=== PATIENT | female | born 1980 | race Caucasian/White ===

== ENCOUNTER 2020-01-23 08:46 | Outpatient (CLI) | payer OTHER, SELFPAY ==
--- NOTE | 2020-01-29 10:07 | WPDPFTINT ---
PFT Interpretation PFT Interpretation: DOS: 01/23/2020 REQUESTING: Phylicia Brunson NP REASON FOR TESTING: Asthma PULMONARY FUNCTION TESTS Results are reliable and reproducible. Spirometry: FEV1 is 109%, FVC 99%, FEV1% 87%, all are normal. IPO40-19% is 131%, normal. No change with bronchodilator. Lung volumes: TLC 81%, low end of normal. ERV 53%, decreased likely due to elevated BMI. No air trapping. No increase in airway resistance. Diffusion: DLCO 72%, mildly decreased. Flow volume loop: Normal. IMPRESSION: Normal spirometry, lung volumes with mild diffusion impairment. Isolated decrease in diffusion can be seen in anemia, smoking with carboxyhemoglobin, early ILD, collagen vascular disease with pulmonary vascular involvement, and chronic pulmonary emboli. Clinical correlation is recommended. Bethany Valdez MD
== END 2020-01-23 08:47 | disposition home or self-care (01) ==
LOC: ANHPFT 08:48
PROVIDERS: PCP Nurse Practitioner Adult Health; Visit Provider Nurse Practitioner
DX: J45.909 Unspecified asthma, uncomplicated (principal)
CPT/HCPCS: 94060; 94726; 94729

== ENCOUNTER 2021-09-23 15:36 | Outpatient (CLI) | payer OTHER, SELFPAY ==
--- NOTE | ~2021-09-23 | MR_ITS ---
EXAMINATION: MR pelvis wo con DATE: 09/23/2021 16:58 INDICATION: Lesion of joint capsule of pelvic region. TECHNIQUE: Magnetic resonance imaging (MRI) of the pelvis was performed without intravenous contrast. Sequences included axial, coronal, and sagittal T1-weighted FSE and T2-weighted FS FSE. COMPARISON: None. FINDINGS: Bone alignment is normal. No fracture. L5-S1, there is moderately decreased disc height with right castaneda barticular zone extrusion with mass effect on right S1 nerve root in right lateral recess. There is a benign bone island in right ilium. There is mild osteoarthritis of the hips. No hip joint effusion. The hamstring tendon origins and iliopsoas tendons are normal. The gluteus minimus and gluteus medius tendons are normal. The muscle bellies are unremarkable. IMPRESSION: 1. Mild osteoarthritis of the hips. 2. Extrusion at L5-S1 with mass effect on right S1 nerve root. Reviewed, dictated and finalized at location [facility].
== END 2021-09-23 15:37 | disposition home or self-care (01) ==
PROVIDERS: PCP Nurse Practitioner Adult Health; Visit Provider Nurse Practitioner Adult Health
DX: M16.0 Bilateral primary osteoarthritis of hip (principal); M51.27 Other intervertebral disc displacement, lumbosacral region
CPT/HCPCS: 72195

== ENCOUNTER 2021-10-19 10:46 | Emergency (ER) | payer OTHER, SELFPAY ==
[2021-10-19 11:09] VITALS: BP 161/73; PULSE 106; RESP 22; TEMP 36.8; O2SAT 99
[2021-10-19] MEDS: KETOROLAC 30 MG/ML VIAL (*BKC) IM (11:36)
[2021-10-19] MEDS: diazePAM INJ (*CRX) 10 MG/2 ML SYRINGE 5 MG IM (11:36)
[2021-10-19] MEDS: LIDOCAINE 5% PATCH 1 PATCH TRANSDERM (12:04)
[2021-10-19 12:05] VITALS: BP 124/74; PULSE 78; RESP 18; O2SAT 99
[2021-10-19 13:25] LABS: Appearance Urine Slightly Cloudy (Clear); Bilirubin Urine Negative (Negative); Blood Urine Negative (Negative); Color Urine Yellow (Yellow); Glucose Urine UA Negative (Negative); Ketones Urine Negative (Negative); Leukocyte Esterase Ur Trace LEU/UL (Negative); Nitrate Urine Negative (Negative); Protein Urine Negative (Negative); Specific Grav Ur 1.015 (1.001-1.035); Urobilinogen Urine 0.2 mg/dL (<2.0)
[2021-10-19 13:27] LABS: Add Urine Microscopic? YES
[2021-10-19 13:32] LABS: Bacteria Urine Trace /hpf; Mucus Urine Rare /lpf; Squamous Epithelial Cell Urine Moderate /hpf (Few)
[2021-10-19 13:49] VITALS: BP 142/88; PULSE 77; RESP 18; O2SAT 98
--- NOTE | 2021-10-19 14:53 | ED.BACK ---
HPI - Back Pain/Injury General Chief Complaint: Back Pain/Injury Stated Complaint: back pain Time Seen by Provider: 10/19/21 11:11 Source: patient Mode of arrival: ambulatory History of Present Illness HPI Narrative: 41-year-old female presents today with complaints of back pain that has gotten increasingly worse. Patient currently has been worked up by her primary with an MRI and instructed that she had a bulging disc. Patient with increased pain over the last few days. States that she has a appointment with pain management during the week but the pain was just not tolerable today. Patient denies bowel incontinence, bladder incontinence saddle paresthesia, or leg weakness. Patient has tried tenacity in, ibuprofen, Tylenol home without relief. Patient was able to walk from triage to room without difficulty per nurse. Related Data Home Medications Medication Instructions Recorded Confirmed albuterol sulfate 10/19/21 albuterol sulfate INHALATION 10/19/21 alprazolam 0.5 mg PO BID PRN 10/19/21 10/19/21 calcipotriene-betamethasone TOPICAL 10/19/21 [Enstilar] gabapentin 300 mg PO TID 10/19/21 10/19/21 hydrochlorothiazide 25 mg PO DAILY 10/19/21 10/19/21 Allergies Allergy/AdvReac Type Severity Reaction Status Date / Time No Known Allergies Allergy Unverified 10/14/21 10:20 Review of Systems Review of Systems: CONSTITUTIONAL: Denies fever, chills, or sweats. EYES: Denies visual changes, redness, or discharge. ENT: Denies rhinorrhea, congestion, sore throat, or otalgia. CARDIOVASCULAR: Denies chest pain, palpitations, or edema. RESPIRATORY: Denies cough or dyspnea. GASTROINTESTINAL: Denies abdominal pain, nausea, vomiting, or diarrhea. GENITOURINARY: Denies dysuria or hematuria. SKIN: Denies rash or itching. MUSCULOSKELETAL: Back pain radiating down the right leg. Denies joint pain, or myalgia. NEUROLOGIC: Denies headache, numbness, dizziness, or weakness. PSYCHIATRIC: Denies anxiety or depression. Exam Narrative: GENERAL: Well-appearing, well-nourished, and in no acute distress. HEAD: Normocephalic, atraumatic. EYES: PERRLA and EOMI. ENT: Nares clear, no rhinorrhea or epistaxis. Mucous membranes moist. Oropharynx without tonsillar hypertrophy exudate or other lesions. Bilateral TMs pearly de santiago nonbulging NECK: Supple. No adenopathy or masses. No carotid bruits or JVD CHEST: Clear to auscultation. No respiratory distress. No wheezes rales or rhonchi HEART: Regular rate and rhythm. No murmur heard. Normal peripheral pulses. ABDOMEN: Soft, nontender, nondistended, normal active bowel sounds. EXTREMITIES: Unable to do straight leg raises due to pain. Normal range of motion. No edema. SKIN: Warm, dry, no rash. NEURO: No focal deficits. Alert and oriented x3. PSYCH: Normal mood and affect. Course Course Emergency Course: After medication patient pain tolerable. Patient has an appointment tomorrow at a pain management center in [place] but does not feel that she can make car ride due to the pain and she has an appointment at pain management either Wednesday or here at [facility]. Patient discharged home with naproxen, Flexeril, and lidocaine patch. Patient instructed to return with new any new or worsening symptoms including urinary incontinence, bowel incontinence, leg weakness or any other concerns. Patient able to ambulate to vehicle without assistance. Vital Signs Vital signs: Vital Signs Temperature 36.8 C 10/19/21 11:09 Pulse Rate 106 H 10/19/21 11:09 Respiratory Rate 22 H 10/19/21 11:09 Blood Pressure 161/73 H 10/19/21 11:09 Pulse Oximetry 99 10/19/21 11:09 Temperature 36.8 C 10/19/21 11:09 Pulse Rate 77 10/19/21 13:49 Respiratory Rate 18 10/19/21 13:49 Blood Pressure 142/88 H 10/19/21 13:49 Pulse Oximetry 98 10/19/21 13:49 MDM - Back Pain/Injury MDM Narrative Medical decision making narrative: HPI as noted. Patient has had a previous MRI and was i
== END 2021-10-19 13:50 | disposition home or self-care (01) ==
PROVIDERS: Emergency Provider Nurse Practitioner Family; PCP Nurse Practitioner Adult Health
DX: M54.17 Radiculopathy, lumbosacral region (principal)
CPT/HCPCS: 81001; 87086; 87088; 96372; 99284; A9270; J1100; J1885; J3360

== ENCOUNTER 2021-10-28 06:36 | Outpatient (CLI) | payer OTHER, SELFPAY ==
--- NOTE | ~2021-10-28 | MR_ITS ---
EXAMINATION: MR lumbar spine wo con DATE: 10/28/2021 07:11 INDICATION: Lumbar radiculopathy. TECHNIQUE: Magnetic resonance imaging (MRI) of the lumbar spine was performed without intravenous con trast. Sequences included sagittal T2-weighted FSE, sagittal T2-weighted FS FSE, sagittal T1-weighted FSE, and axial T2-weighted FSE. COMPARISON: Lumbar spine radiographs 06/10/2012 FINDINGS: There is 2 mm anterolisthesis of L4 on L5 and 3 mm retrolisthesis of L5 on S1. Vertebral taylor dy heights are normal. There is moderately decreased disc height at L5-S1. The distal spinal cord sig nal intensity is normal. The conus medullaris is at T12-L1. The following disc levels are specificall y discussed: L1-L2: The disc does not extend beyond the endplate margin. There is mild right and moderate left fac et joint osteoarthritis. There is no neural foraminal stenosis. There is no central canal stenosis. L2-L3: The disc does not extend beyond the endplate margin. There is mild bilateral facet joint osteo arthritis. There is no neural foraminal stenosis. There is no central canal stenosis. L3-L4: The disc does not extend beyond the endplate margin. There is moderate bilateral facet joint o steoarthritis. There is no neural foraminal stenosis. There is no central canal stenosis. L4-L5: The disc does not extend beyond the endplate margin. There is severe bilateral facet joint ost eoarthritis. There is mild bilateral neural foraminal stenosis. There is no central canal stenosis. L5-S1: There is a right central and subarticular zone extrusion with mass effect on right S1 nerve ro ot in right lateral recess. There is moderate bilateral facet joint osteoarthritis. There is mild sammie ateral neural foraminal stenosis. There is moderate central canal stenosis. There is severe stenosis of right lateral recess. IMPRESSION: 1. Moderate lower lumbar spondylosis. Of note, a large extrusion at L5-S1 exerts mass effect on right S1 nerve root. Reviewed, dictated and finalized at location B. IMPRESSION: 1. Moderate lower lumbar spondylosis. Of note, a large extrusion at L5-S1 exert s mass effect on right S1 nerve root.
== END 2021-10-28 06:37 | disposition home or self-care (01) ==
PROVIDERS: PCP Nurse Practitioner Adult Health; Visit Provider Nurse Practitioner Adult Health
DX: M47.26 Other spondylosis with radiculopathy, lumbar region (principal)
CPT/HCPCS: 72148

== ENCOUNTER 2021-10-28 23:02 | Emergency (ER) | payer OTHER, SELFPAY ==
[2021-10-28 23:50] VITALS: BP 175/109; PULSE 121; RESP 24; TEMP 36.3; O2SAT 100
[2021-10-29] VITALS (17 sets, daily range): BP systolic 148–180; BP diastolic 63–99; PULSE 96–133; RESP 10–39; O2SAT 97–99
[2021-10-29 02:26] LABS: Appearance Urine Clear (Clear); Bilirubin Urine Negative (Negative); Blood Urine 2+ (Negative); Color Urine Yellow (Yellow); Glucose Urine UA Negative (Negative); Ketones Urine Trace mg/dL (Negative); Leukocyte Esterase Ur Trace LEU/UL (Negative); Nitrate Urine Negative (Negative); Protein Urine Negative (Negative); Specific Grav Ur >= 1.030 (1.001-1.035); Urobilinogen Urine 0.2 mg/dL (<2.0); pH Urine 5.5 (5.0-9.0)
[2021-10-29 02:38] LABS: Mucus Urine Rare /lpf; Squamous Epithelial Cell Urine Moderate /hpf (Few)
[2021-10-29 02:39] LABS: Add Urine Microscopic? YES
[2021-10-29] MEDS: diazePAM (*CRX) 5 MG TABLET PO (04:16)
--- NOTE | 2021-10-29 06:41 | ED.BACK ---
HPI - Back Pain/Injury General Chief Complaint: Back Pain/Injury Stated Complaint: pain and numbness to both legs, herniated disk Time Seen by Provider: 10/29/21 03:58 Source: patient and RN notes reviewed Mode of arrival: ambulatory Limitations: no limitations History of Present Illness HPI Narrative: This is a 41 year old female who presents for evaluation of back pain and spasm. Patient has been dealing with sciatica and back pain for 3 weeks. She reports she has been having pain that radiates down her right leg. She also reports right foot numbness that has been present for 3 weeks. Patient was taking a muscle relaxer with gabapentin but her doctor recently forgot to prescribes her muscle relaxer again. She states she has been unable to sleep for 2 days due to right thigh spasms. She also reports tonight feeling like she had tingling when she was urinating. She felt increased urinary urgency. She also reports feeling some numbness in her vagina. She denies nausea, vomiting, chest pain, sob, fever or chills . She also denies leg weakness. She is able to walk. Related Data Home Medications Medication Instructions Recorded Confirmed albuterol sulfate 10/19/21 albuterol sulfate INHALATION 10/19/21 alprazolam 0.5 mg PO BID PRN 10/19/21 10/19/21 calcipotriene-betamethasone TOPICAL 10/19/21 [Enstilar] gabapentin 300 mg PO TID 10/19/21 10/19/21 hydrochlorothiazide 25 mg PO DAILY 10/19/21 10/19/21 Allergies Allergy/AdvReac Type Severity Reaction Status Date / Time No Known Allergies Allergy Unverified 10/14/21 10:20 Review of Systems Review of Systems: All systems reviewed & are unremarkable except as noted in HPI and below PMFSH Past Medical History Medical History (Updated 10/29/21 @ 06:49 by More Atkinson MD) Cholecystitis Hypertension Sciatica Social History Social History (Updated 10/29/21 @ 06:45 by More Atkinson MD) Smoking status: Never smoker Exam Narrative: GENERAL: Well-appearing, well-nourished, and in no acute distress. HEAD: Normocephalic, atraumatic NECK: Supple, without lymphadenopathy or mass RESPIRATORY: No respiratory distress, Airway patent, Respirations non-labored, EXTREMITIES: normal strength with full range of motion. SKIN: Warm, dry, normal color without rash NEURO: Alert and oriented x3. CN 2-12 grossly intact. No focal deficits. PSYCH: Normal mood and affect. Const: General: no acute distress and alert Nutritional Appearance: obese Orientation/consciousness: patient oriented x3 Neuro: Motor exam (neuro): 5/5 motor strength present throughout, Pronator motor function not present and No tremor noted Sensory Exam: Abnormal lower extremity sensory exam (right heel numbness) and Perineum abnormal exam normal Extrem: Other: bilateral pedal edema Psych: Mental Status: mental status grossly normal Affect: normal affect Course Reevaluation(s) Reevaluation #1: PAtient received valium. She states she feels better She denies saddle anesthesia now. She normal rectal exam. She has normal perineum exam. I discussed with patient that I had call out to spine regarding her symptoms and MRI. Tito does not want to wait since her symptoms have improved. Date: 10/29/21 Time: 06:47 Vital Signs Vital signs: Vital Signs Temperature 97.3 F L 10/28/21 23:50 Pulse Rate 121 H 10/28/21 23:50 Respiratory Rate 24 H 10/28/21 23:50 Blood Pressure 175/109 H 10/28/21 23:50 Pulse Oximetry 100 10/28/21 23:50 Temperature 97.3 F L 10/28/21 23:50 Pulse Rate 114 H 10/29/21 07:14 Respiratory Rate 24 H 10/29/21 07:14 Blood Pressure 180/99 H 10/29/21 07:14 Pulse Oximetry 97 10/29/21 07:00 MDM - Back Pain/Injury Lab Data Labs: Lab Results 10/29/21 Range/Units 01:51 Urine Color Yellow (Yellow) Urine Appearance Clear (Clear) Urine pH 5.5 (5.0-9.0) Ur Specific [place] >= 1.030 (1.001-1.035) Urine Protein Negative
== END 2021-10-29 07:19 | disposition home or self-care (01) ==
PROVIDERS: Emergency Provider General Practice; PCP Nurse Practitioner Adult Health
DX: M54.16 Radiculopathy, lumbar region (principal); I10 Essential (primary) hypertension
CPT/HCPCS: 72148; 81001; 81025; 87086; 87088; 99283; A9270

== ENCOUNTER 2021-11-08 12:14 | Inpatient (IN) | payer OTHER, SELFPAY ==
[2021-11-08] VITALS (16 sets, daily range): BP systolic 115–147; BP diastolic 79–114; PULSE 120–160; RESP 16–27; TEMP 35.9–36.8; O2SAT 92–99; BMI 66.1
--- NOTE | ~2021-11-08 | CT_ITS ---
EXAMINATION: CTA chest PE protocol DATE: 11/08/2021 14:29 INDICATION: Shortness of breath, tachycardia, elevated d-dimer. Recent surgery. TECHNIQUE: Computed tomography angiography (CTA) of the chest was performed with 100 mL Omnipaque-350 intravenous contrast timed to evaluate the pulmonary arteries. Coronal maximum intensity projection 3D-reconstructions were created by the technologist. Automated exposure control and iterative reconst ruction technique were employed. Exam dose: 1078.44 mGy-cm total exam DLP. COMPARISON: 05/31/[address] pulmonary scan FINDINGS: There is diagnostic contrast enhancement the pulmonary arteries. There is extensive bilater al pulmonary emboli including bilateral saddle emboli, with extending into the bilateral upper and lo wer lobes and middle lobe. Right ventricle appears larger than left lateral with some leftward bowing of the interventricular se ptum suggesting right heart strain. No thoracic aortic aneurysm or dissection. No hilar or mediastinal mass lesion or lymphadenopathy is detected. Normal heart size. No pericardial or pleural effusion. No pulmonary infiltrate or consolidation or pulmonary mass lesion. Normal morphology of the adrenal glands. Status post cholecystectomy. Hepatic steatosis. IMPRESSION: Extensive bilateral pulmonary emboli with evidence of right heart strain Dr. Duque notified emergency room physician Dr. Paez of the findings on 11/08/2021 at 1434 hours by telephone. Reviewed, dictated and finalized at [facility]. Reviewed, dictated and finalized at location A. IMPRESSION: Extensive bilateral pulmonary emboli with evidence of right heart strain Dr. Duque notified emergency room physician Dr. Paez of the findings on 11/08 at 1434 hours by telephone.
--- NOTE | 2021-11-08 12:32 | ED.GENADULT ---
HPI - General Adult General Chief complaint: Shortness of Breath/Dyspnea Stated complaint: shortness of breath Time Seen by Provider: 11/08/21 12:24 History of Present Illness HPI narrative: 41-year-old female with history of asthma presenting to the emergency department for evaluation of worsening chest tightness and shortness of breath. Patient did have a microdiscectomy L5-S1 done on Wednesday by Dr. Henry at [facility]. Patient states that she has had some worsening shortness of breath. Patient states she had shortness of breath that started yesterday and that it was transient. Patient states that the shortness of breath worsened today and has been persistent. Patient states she does have some chest tightness. Patient does have history of asthma but denies any associated wheezing. Patient is on oral control. Patient denies any prior history of PE or DVT. Patient does have some right lower extremity swelling and numbness. Patient states the numbness has been persistent since before the surgery. Patient states that the swelling has been unchanged since the surgery. Patient is vaccinated against COVID. Patient denies any recent COVID symptoms including fever. Related Data Home Medications Medication Instructions Recorded Confirmed albuterol sulfate 10/19/21 albuterol sulfate 90 mcg/actuation inhalation 10/19/21 aerosol inhaler alprazolam 0.5 mg tablet 0.5 mg PO BID PRN Anxiety 10/19/21 10/19/21 calcipotriene 0.005 topical 10/19/21 %-betamethasone 0.064 % topical foam (Enstilar) gabapentin 300 mg capsule 300 mg PO TID 10/19/21 10/19/21 hydrochlorothiazide 25 mg tablet 25 mg PO DAILY 10/19/21 10/19/21 Allergies Allergy/AdvReac Type Severity Reaction Status Date / Time No Known Allergies Allergy Unverified 10/14/21 10:20 Review of Systems Review of Systems: CONSTITUTIONAL: Denies fever, chills, or sweats. EYES: Denies visual changes, redness, or discharge. ENT: Denies rhinorrhea, congestion, sore throat, or otalgia. CARDIOVASCULAR: Rapid heart rate RESPIRATORY: Hypoxia 88% noted at home with associated shortness of breath with exertion GASTROINTESTINAL: Denies abdominal pain, nausea, vomiting, or diarrhea. GENITOURINARY: Denies dysuria or hematuria. SKIN: Denies rash or itching. MUSCULOSKELETAL: Denies back pain, joint pain, or myalgia. NEUROLOGIC: No change in her numbness or weakness since surgery. No acute worsening of her lower back pain. PSYCHIATRIC: Patient does have history of anxiety. [facility] Past Medical History Medical History (Updated 11/08/21 @ 17:31 by Harry Paez MD) Cholecystitis Hypertension Sciatica Social History Social History (Updated 10/29/21 @ 06:45 by More Atkinson MD) Smoking status: Never smoker Exam Narrative: APPEARANCE: Anxious appearing HEAD: normocephalic, atraumatic. THROAT: Pharynx clear, no exudate. NECK: Supple. No adenopathy, no masses. RESPIRATORY: Airway patent, respirations nonlabored. Clear to auscultation bilaterally, no rales, rhonchi, wheezing. CARDIOVASCULAR: Tachycardic, normal rhythm without murmurs rubs or gallops. ABDOMINAL: Soft, nontender, nondistended, normal bowel sounds MUSCULOSKELETAL: Moves all extremities. Strength/ROM intact. Right lower extremity edema. NEURO: Alert. Cranial nerves II through XII intact. Grossly intact SKIN: Warm, dry. Normal Color Course Course Emergency Course: Patient's EKG showed sinus tachycardia with the ST elevation. Patient D-dimer was elevated. CTA did show evidence of pulmonary embolism bilaterally. Patient is tachycardic into the 130s after rehydration. Patient is anxious and she was also treated with medications for anxiety. After treatment of her anxiety patient does feel improved. Case was discussed with the hospitalist and patient will be admitted to the IMU. Heparin bolus and infusion were started while the patient was in the ED. Patient and family were updated on the diagn
--- NOTE | 2021-11-08 12:36 | ECG_ITS ---
Measurements Intervals [place] Rate: 129 P: 9 VT: 148 QRS: 29 QRSD: 90 T: 5 QT: 334 QTc: 490 Interpretive Statements SINUS TACHYCARDIA DELAYED PRECORDIAL R/S TRANSITION MINIMAL Q WAVES- INFERIOR LEADS BORDERLINE ST-T WAVE ABNORMALITY- ANTEROLAT/INF LEADS ABNORMAL ECG Electronically Signed On 11-08-2021 16:00:10 CDT by Bill Mcfarland D.O.
[2021-11-08 12:43] LABS: Basophils Percent Auto 0.3 % (0.2-1.2); Eosinophils Absolute Auto 0.4 K/mm3 (0-0.3); Eosinophils Percent Auto 2.9 % (0-4.4); Hematocrit 43.3 % (37.0-47.0); Hemoglobin 13.6 g/dL (12.0-15.0); Immature Granulocyte Absolute 0.05 K/mm3 (0.00-0.031); Immature Granulocyte Percent A 0.4 % (0-0.5); Lymphocytes Absolute Auto 3.87 K/mm3 (0.9-3.2); Lymphocytes Percent Auto 29.1 % (18.3-44.2); Mean Corpuscular HGB Conc 31.4 g/dl (32-36); Mean Corpuscular Hemoglobin 27.5 pg (26-34); Mean Corpuscular Volume 87.5 fl (80-100); Mean Platelet Volume 10.5 fl (7.4-10.4); Monocytes Absolute Auto 0.7 K/mm3 (0.1-0.6); Monocytes Percent Auto 5.5 % (2.6-8.5); Neutrophils Absolute Auto 8.2 K/mm3 (1.3-6.7); Neutrophils Percent Auto 61.8 % (45.5-73.1); Platelet Count Result 240 k/mm3 (150-375); Red Blood Count 4.95 M/mm3 (4.2-5.4); Red Cell Distribution Width 13.2 % (11.5-14.5); White Blood Count 13.3 K/mm3 (4.5-10.0)
[2021-11-08] MEDS: ALBUTEROL SULFATE NEB 2.5 MG/3 ML INH 5 MG INHALATION (12:53)
[2021-11-08 13:01] LABS: Alanine Aminotransferase 63 U/L (6-35); Albumin Level 4.3 g/dL (3.5-5.1); Alkaline Phosphatase 85 U/L (38-126); Anion Gap 6 mmol/L (8-16); Aspartate Amino Transferase 89 U/L (14-36); Bilirubin,Total 0.5 mg/dL (0.2-1.3); Blood Urea Nitrogen 10 mg/dL (7-17); Calcium 9.1 mg/dL (8.4-10.2); Carbon Dioxide 29 mmol/L (22-30); Chloride 99 mmol/L (98-107); Estimated CRCL calculation 144 ml/min; Estimated Glomerular Filt Rate > 60; Glucose 127 mg/dL (65-110); Potassium 3.6 mmol/L (3.4-5.0); Sodium 134 mmol/L (137-145)
[2021-11-08 13:14] LABS: D Dimer 6.73 ug/mL (<0.48)
[2021-11-08 13:19] LABS: SARS-CoV-2 RNA PCR Negative
--- NOTE | 2021-11-08 13:40 | PC.NURSE ---
Pt on 2 L NC O2. Does not wear home O2.
[2021-11-08] MEDS: SODIUM CHLORIDE 0.9% IV 1,000 ML 250 ML IV CONT (14:03)
--- NOTE | 2021-11-08 14:07 | PC.NURSE ---
Pt to CT scan via stretcher at this time.
[2021-11-08] MEDS: LORazepam INJ (*CRX) 2 MG/ML VIAL 0.5 MG IV PUSH (15:15)
[2021-11-08 16:16] LABS: Prothrombin Time 12.7 Seconds (11.1-14.7)
--- NOTE | 2021-11-08 16:17 | ADMGEN ---
This patient, Ashley Castillo, was admitted to IMU Room 202-01 at 1616. Patient/family oriented to hospital policies and general routines including ID bracelet, bed and alarms, visiting hours, pain management, procedures, bathroom and other care routines, personal items, smoking policy, room service/diet, and visiting hours. Information on how to activate the Rapid Response Team has been discussed. Patient/Family are encouraged to report perceived risks to care and to ask questions if they do not understand what they are told or what they should do.
[2021-11-08] MEDS: HEPARIN SOD/D5W 100 UNITS/ML 25,000 UNITS/250 ML BAG 15 UNITS IV CONT (16:39)
--- NOTE | 2021-11-08 18:39 | PM.IMHP ---
H&P: HPI History of Present Illness Date/Time: Patient requires inpatient monitoring with expected length of stay to exceed 2 midnights for management of care. 11/08/21 18:39 Chief Complaint: Shortness of breath Narrative: Ms. Casitllo is a 41-year-old female who presented to the emergency room with complaints of shortness of breath this started yesterday. Patient states that she had microdiskectomy on 11/04/2021 at [facility]. Patient states that she has been doing fairly well and trying to walk as much as she can, but yesterday she began having shortness of breath that had worsened today. Patient states that she does have a pulse oximeter home she checked her O2 saturation and her saturation was in 80s and she decided come to the emergency room for further evaluation. Patient states that she has had pain between her shoulder blades and in her chest with inspiration. Patient states that she has been having right lower extremity pain for approximately 1 month, but she thought it was her sciatica. Patient states she has noticed swelling to her right foot. Patient denies any lightheadedness, dizziness, syncopal, or near syncopal episodes. Patient denies any palpitations. Upon evaluation emergency room patient was noted to have saturations in the low 90s on room air and she was placed on O2 at 2 L per nasal cannula. Patient underwent CTA and years notified that patient had extensive bilateral pulmonary embolism with evidence of right heart strain. Patient was placed on a heparin drip and it was decided to admit patient for further evaluation. Patient has a known history of lumbar back issues with chronic pain and underwent a lumbar microdiskectomy on 11/04/2021. Patient states she does have a history of chronic back pain, hypertension, and anxiety. Review of Systems Review of Systems: A 12 point review of systems was completed patient all pertinent positive and negative per HPI the remainder are unremarkable. [facility] Past Medical History Medical History (Updated 11/08/21 @ 18:57 by Lydia Churchill APRN) Anxiety Cholecystitis Hypertension Sciatica Surgical History Surgical History (Updated 11/08/21 @ 18:58 by Lydia Churchill APRN) History of microdiscectomy Social History Social History (Updated 10/29/21 @ 06:45 by More Atkinson MD) Smoking status: Never smoker Alcohol intake: never Substance use: never Spiritual care concerns: No Meds Home Medications and Allergies Home Medications Medication Instructions Recorded Confirmed Type albuterol sulfate 2.5 mg QID PRN Shortness Of Breath 10/19/21 11/08/21 History albuterol sulfate 90 mcg/actuation 90 mcg inhalation QID PRN 10/19/21 11/08/21 History aerosol inhaler Shortness Of Breath alprazolam 0.5 mg tablet 0.5 mg PO BID PRN Anxiety 10/19/21 11/08/21 History gabapentin 300 mg capsule 300 mg PO TID 10/19/21 11/08/21 History hydrochlorothiazide 25 mg tablet 25 mg PO DAILY 10/19/21 11/08/21 History hydrocodone 10 mg-acetaminophen See Rx Instructions .Route 11/08/21 11/08/21 History 325 mg tablet .COMPLEX PRN Pain ondansetron 4 mg disintegrating 4 tablet PO QID 11/08/21 11/08/21 History tablet pantoprazole 40 mg tablet,delayed 40 tablet PO DAILY 11/08/21 11/08/21 History release vilazodone 40 mg tablet (Viibryd) 40 tablet PO DAILY 11/08/21 11/08/21 History Allergies Allergy/AdvReac Type Severity Reaction Status Date / Time No Known Allergies Allergy Unverified 10/14/21 10:20 Vital Signs Vital Signs - 24 hr 11/08/21 12:19 11/08/21 12:42 11/08/21 12:54 Temperature 36.0 C L Pulse Rate 160 H 129 H 120 H Respiratory Rate 18 18 Blood Pressure 147/114 H Pulse Oximetry 92 Oxygen Delivery Oxygen Flow Rate 11/08/21 13:13 11/08/21 13:38 11/08/21 15:00 Temperature Pulse Rate 132 H 140 H 140 H Respiratory Rate 20 21 H 21 H Blood Pressure 138/101 H Pulse Oximetry 97 97 Oxygen Delivery Oxygen
[2021-11-08] MEDS: LORazepam INJ (*CRX) 2 MG/ML VIAL 1 MG IV PUSH (19:01)
--- NOTE | 2021-11-08 20:29 | PC.NURSE ---
Report called to Keyana VILLALPANDO at [facility], . Patient is to go to ICU 3501. Will call for ambulance transportation.
--- NOTE | 2021-11-08 22:18 | PC.NURSE ---
[facility] ambulance service will belt picker patient at approximately 0000. I called and updated Keyana VILLALPANDO at [facility].
[2021-11-08 22:54] LABS: Partial Thromboplastin Time 38.9 SECONDS (22.3-36.8)
[2021-11-08] MEDS: HEPARIN SODIUM 5,000 UNITS/ML VIAL 8000 UNITS IV PUSH (23:09)
[2021-11-09] VITALS: PULSE 118; O2SAT 99
--- NOTE | 2021-11-09 00:33 | PC.NURSE ---
Spoke with Roslyn VILLALPANDO at [facility]. She will be taking over the care of this patient. Report given and all questions answered. Patient was transported out of the hospital at 0030 via [facility].
--- NOTE | 2021-11-14 14:05 | PM.TDS ---
Transfer Discharge Sum: Prov Provider Date of admission: 11/08/21 16:54 Primary care physician: Cristela Lobo, PLANT MAINTENANCE TECHNICIAN Admitting clinician: Eva Savage MD Consults: None Receiving physician/facility: [facility] ICU. Accepting physician Dr. Rico DS: Admitting Diagnosis Discharge Date 11/09/21 Admitting Diagnosis SOB/Pulmonary embolism DS: Discharge Diagnosis Discharge Diagnosis (1) Pulmonary embolism: Qualifiers: Acute cor pulmonale presence: unspecified Chronicity: acute Pulmonary embolism type: saddle Qualified Code(s): I26.92 - Saddle embolus of pulmonary artery without acute cor pulmonale Code(s): I26.99 - Other pulmonary embolism without acute cor pulmonale Status: Acute Assessment and Plan: Patient was placed on heparin drip and transferred to [facility].? After further investigation findings of CT scan were noted that patient had bilateral saddle emboli with extending into the bilateral upper and lower lobes and middle lobes.? Right ventricle appears larger than left lateral with some leftward bowing of the interventricular septum suggesting right heart strain.? At this point time patient is hemodynamically stable but will need to be transferred to a higher level of care.? Patient recently had surgery at [facility] and [facility] has been made aware of patient's diagnosis.? At this time we are awaiting an ICU bed. Transfer Discharge Sum: Med Medications Active and Home Medications: Home Medications albuterol sulfate 2.5 mg/3 mL (0.083 %) solution for nebulization 2.5 mg QID PRN Shortness Of Breath 10/19/21 [History Confirmed 11/08/21] albuterol sulfate 90 mcg/actuation aerosol inhaler 90 mcg inhalation QID PRN Shortness Of Breath 10/19/21 [History Confirmed 11/08/21] alprazolam 0.5 mg tablet 0.5 mg PO BID PRN Anxiety 10/19/21 [History Confirmed 11/08/21] gabapentin 300 mg capsule 300 mg PO TID 10/19/21 [History Confirmed 11/08/21] hydrochlorothiazide 25 mg tablet 25 mg PO DAILY 10/19/21 [History Confirmed 11/08/21] hydrocodone 10 mg-acetaminophen 325 mg tablet See Rx Instructions .Route .COMPLEX PRN Pain 11/08/21 [History Confirmed 11/08/21] ondansetron 4 mg disintegrating tablet 4 tablet PO QID 11/08/21 [History Confirmed 11/08/21] pantoprazole 40 mg tablet,delayed release 40 tablet PO DAILY 11/08/21 [History Confirmed 11/08/21] vilazodone 40 mg tablet (Viibryd) 40 tablet PO DAILY 11/08/21 [History Confirmed 11/08/21] Transfer Discharge Sum: Hosp Hospital Course Hospital course: Ashley Castillo is a 41 year old female who presented to the emergency room with complaints of shortness of breath this started yesterday.? Patient states that she had microdiskectomy on 11/04/2021 at [place].? Patient states that she has been doing fairly well and trying to walk as much as she can, but yesterday she began having shortness of breath that had worsened today.? Patient states that she does have a pulse oximeter home she checked her O2 saturation and her saturation was in 80s and she decided come to the emergency room for further evaluation.? Patient states that she has had pain between her shoulder blades and in her chest with inspiration. Patient states that she has been having right lower extremity pain for approximately 1 month, but she thought it was her sciatica.? Patient states she has noticed swelling to her right foot.? Patient denies any lightheadedness, dizziness, syncopal, or near syncopal episodes.? Patient denies any palpitations.? Upon evaluation emergency room patient was noted to have saturations in the low 90s on room air and she was placed on O2 at 2 L per nasal cannula.? Patient underwent CTA and years notified that patient had extensive bilateral pulmonary embolism with evidence of right heart strain.? Patient was placed on a heparin drip and it was decided to admit patient for further evaluation. Patient has a known history of lumbar back issues with chronic peterson
== END 2021-11-09 00:30 | disposition short-term general hospital (02) | DRG 176 ==
LOC: ANHED 13:31 → ANHIMU 15:52
PROVIDERS: Admitting Provider Family Medicine; Emergency Provider Emergency Medicine; PCP Nurse Practitioner Adult Health; Visit Provider Nurse Practitioner Adult Health
DX: I26.92 Saddle embolus of pulmonary artery without acute cor pulmonale (principal); I10 Essential (primary) hypertension; Z20.822 Contact with and (suspected) exposure to COVID-19; Z98.890 Other specified postprocedural states
CPT/HCPCS: 36415; 71275; 80053; 81025; 85025; 85380; 85610; 85730; 93005; 94640; 96375; 99285; C9803; G0378; J1644; J2060; J7030; Q9967; U0003; U0005

== ENCOUNTER 2021-12-26 08:11 | Outpatient (CLI) | payer OTHER, SELFPAY ==
--- NOTE | 2021-12-28 16:10 | WPDSIXMINUTE ---
Six Minute Walk Procedure Procedure Performed Pulmonary Stress Test (6 min walk) Six Minute Walk Six Minute Walk: DATE OF SERVICE : 12/26/2021 REQUESTING : RM Cheatham REASON FOR TESTING: history of PE SIX MINUTE WALK This study was conducted per ATS protocol on was on room air. The initial saturation was 98% and the pulse was 100. Patient walked without stopping to rest, completing 850 feet/259 meters. The lowest saturation was 93%. The highest pulse was 136 while walking. Pulse increased during recovery to 153 at the 8.5 minute kaylene. Pulse at the riky of the 5 minutes of recovery was 108. Saturation was 95-98% during 5 minutes of recovery. IMPRESSION: No need for supplemental oxygen with exertion. The patient had resting tachycardia at the start of the test, and pulse increased to 153 during recovery. Pulse remained above 100 at the end of 5 minutes of recovery. A normal response to exercise is heart rate returning to baseline in 2 minutes. Clinical correlation is recommended.
== END 2021-12-26 08:12 | disposition home or self-care (01) ==
PROVIDERS: PCP Nurse Practitioner Adult Health; Visit Provider Nurse Practitioner
DX: Z86.711 Personal history of pulmonary embolism (principal)
CPT/HCPCS: 94618

== ENCOUNTER 2022-01-16 13:39 | Outpatient (CLI) | payer OTHER, SELFPAY ==
--- NOTE | 2022-01-20 18:14 | P.PCNHOL_ITS ---
Holter/Event Monitor Holter/Event Monitor Date of procedure: 01/20/22 Holter/Event Procedure: 48 Hr Holter Monitor Diagnosis: Tachycardia Indications: 41-year-old female with tachycardia Image/Tracing Quality: Good Finding: The patient was monitored for 48 hours. The underlying rhythm was sinus with an average heart rate of 92 beats per minute (range 57-171 BPM). There were 14 PACs. No PVCs present. There was no atrial fibrillation, SVT, pauses, heart block or ventricular tachycardia. The patient noted some chest pain at 6:13 p.m. on day 1 while sitting and she was in sinus rhythm rate 92 beats per minute. She had flushing at 9:15 p.m. at which time she was in sinus tachycardia rate 111 beats per minute and a headache at 9:45 p.m. when she was in sinus rhythm rate 99 beats per minute. On the following day at 1:13 p.m. she complained of being out of breath and very tired try doing the laundry and she was in sinus tachycardia rate 135 beats per minute. At 2:18 p.m. she noted a pulse of 156, out of breath from talking and doing the laundry, sweaty, and she was in sinus tachycardia rate 148 beats per minute. Around 6:00 p.m. she stated she was short of breath with chest pain while cleaning out her car and she was in sinus tachycardia rate 101 beats per minute. On the final day at 10:15 a.m. she had a little chest pain and shortness of breath while getting dressed and she was in sinus rhythm rate 92 beats per minute. Conclusion: Monitors remarkable for mildly elevated heart rate Symptoms correlated with sinus rhythm and sinus tachycardia, heart rates of 92- 148 beats per minute.
== END 2022-01-16 13:40 | disposition home or self-care (01) ==
LOC: ANHCARD 13:41
PROVIDERS: PCP Nurse Practitioner Adult Health; Visit Provider Nurse Practitioner
DX: R00.0 Tachycardia, unspecified (principal)
CPT/HCPCS: 93225; 93226

== ENCOUNTER 2022-03-09 09:25 | Outpatient (CLI) | payer OTHER, SELFPAY ==
--- NOTE | 2022-03-09 12:52 | WPDPFTINT ---
PFT Procedure Performed PFT Procedure Performed Spirometry with Pre/Post Bronchodilator Plethysmography (Lung Vol) Diffusing Cap (DLCO) Flow Vol Loop PFT Interpretation This is a pulmonary function test with pre and post-bronchodilator spirometry, plethysmography and diffusing capacity. The test was performed and results interpreted in accordance with the 2019 and 2005 ATS/ERS Task Force guidelines respectively using the Global Lung Function Initiative-2012 reference equations. Patient demonstrated good effort and cooperation. Reproducibility criteria were met. The quality of the pre bronchodilator spirometry maneuver was Grade A and post bronchodilator spirometry maneuver was Grade A. Findings: Spirometry: Contour the inspiratory and expiratory flow tracing are normal. The pre bronchodilator FVC is 3.58 L, 101% predicted. The pre bronchodilator FEV1 is 3.03 L, 104% predicted. The pre bronchodilator FEV1: FVC ratio was 84%. The post bronchodilator FVC is 3.46 L, representing a 3% decrease. The post bronchodilator FEV1 is 3.14 L, representing a 4% increase. The post bronchodilator FEV1: FVC ratio was 91%. Plethysmography: The total lung capacity is 4.46 L, 91% predicted. The functional residual capacity is 1.29 L, 48% predicted. The residual volume is 0.88 L, 57% predicted. Diffusion capacity: The diffusing capacity unadjusted for hemoglobin and carboxyhemoglobin is 24.3, 104% predicted. The diffusing capacity adjusted for alveolar volume is 5.43, 113% predicted. In comparison to prior pulmonary function test on 01/22/2021 the post bronchodilator FVC is unchanged from 3.42 L to 3.46 L. The post bronchodilator FEV1 is unchanged from 3.00 L to 3.14 L. The total lung capacity is unchanged from 3.95 L to 4.46 L. The functional residual capacity is increased from 0.94 L to 1.29 L. The residual volume is increased from 0.51 L to 0.88 L. The diffusing capacity unadjusted for hemoglobin and carboxyhemoglobin is unchanged from 25.4 to 24.3. The diffusing capacity adjusted for alveolar volume is unchanged from 6.00 to 5.43. Impression: The spirometry is normal without evidence of an obstructive abnormality. There is no significant improvement after inhaling a single dose of albuterol. The total lung capacity and residual volume are normal with a decreased functional residual capacity. This is not normal but nonspecific lung volume pattern. The diffusing capacity is normal. In comparison to previous pulmonary function test on 01/23/2020 there has been a greater than anticipated time dependent increase in the functional residual capacity and residual volume with no significant change in the FVC, FEV1, total lung capacity or diffusing capacity. Clinical correlation is recommended.
== END 2022-03-09 09:26 | disposition home or self-care (01) ==
LOC: ANHPFT 09:27
PROVIDERS: PCP Nurse Practitioner Adult Health; Visit Provider Nurse Practitioner
DX: J45.909 Unspecified asthma, uncomplicated (principal)
CPT/HCPCS: 94060; 94726; 94729

== ENCOUNTER 2022-04-03 19:06 | Emergency (ER) | payer OTHER, SELFPAY ==
[2022-04-03 19:18] VITALS: BP 152/85; PULSE 86; RESP 18; TEMP 36.6; O2SAT 100
--- NOTE | 2022-04-03 19:18 | PC.NURSE ---
in br to obtain ua spec.
--- NOTE | 2022-04-03 19:20 | ED.FEMALEGU ---
HPI - Female Genitourinary General Chief complaint: Urogenital-Female Stated complaint: UTI Time Seen by Provider: 04/03/22 19:30 Source: patient, RN notes reviewed and old records reviewed Mode of arrival: ambulatory Limitations: no limitations History of Present Illness HPI Narrative: 41-year-old female presents to the [facility] with complaints of a UTI. Patient has had burning, frequency, urgency, blood in her urine. Symptoms for 4 days. Has a significant past medical history, currently taking Coumadin Has taken Azo Related Data Home Medications Medication Instructions Recorded Confirmed albuterol sulfate 2.5 mg/3 mL 2.5 mg QID PRN Shortness Of Breath 10/19/21 11/08/21 (0.083 %) solution for nebulization albuterol sulfate 90 mcg/actuation 90 mcg inhalation QID PRN 10/19/21 11/08/21 aerosol inhaler Shortness Of Breath alprazolam 0.5 mg tablet 0.5 mg PO BID PRN Anxiety 10/19/21 11/08/21 gabapentin 300 mg capsule 300 mg PO TID 10/19/21 11/08/21 hydrochlorothiazide 25 mg tablet 25 mg PO DAILY 10/19/21 11/08/21 pantoprazole 40 mg tablet,delayed 40 tablet PO DAILY 11/08/21 11/08/21 release vilazodone 40 mg tablet (Viibryd) 40 tablet PO DAILY 11/08/21 11/08/21 Mounjaro 04/03/22 azelastine 137 mcg (0.1 %) nasal intranasal 04/03/22 spray aerosol silver sulfadiazine 1 % topical applic topical 04/03/22 cream (SSD) warfarin 3 mg tablet mg 04/03/22 warfarin 4 mg tablet mg 04/03/22 Allergies Allergy/AdvReac Type Severity Reaction Status Date / Time No Known Allergies Allergy Verified 04/03/22 19:08 Review of Systems Review of Systems: All systems reviewed & are unremarkable except as noted in HPI and below Constitutional: Constitutional: Reports no additional constitutional complaints, Denies chills and Denies fever(s) Eyes: Eyes: Reports no additional eye complaints ENT: Reports system reviewed and no additional complaints, except as documented Cardiovascular: Cardiovascular: Reports no additional cardiovascular complaints Respiratory: Respiratory: Reports no additional respiratory complaints Gastrointestinal: Gastrointestinal: Reports no additional gastrointestinal complaints Genitourinary: Genitourinary: Reports as per HPI, Reports hematuria and Reports dysuria Musculoskeletal: Musculoskeletal: Reports no additional musculoskeletal complaints Integumentary/Breasts: Skin/Breast: Reports system reviewed and no additional complaints, except as docu Neurologic: Reports system reviewed and no additional complaints, except as documented Psychiatric: Psychiatric: Reports no additional psychiatric complaints Allergic/Immunologic: Allergic/Immunologic: Reports no additional allergic/immunologic complaints PMFSH Past Medical History Medical History (Updated 04/04/22 @ 19:35 by Nuris Jenkins APRN) Anxiety Cholecystitis Hypertension Pulmonary embolism Sciatica Surgical History Surgical History History of microdiscectomy Social History Social History Smoking status: Never smoker Alcohol intake: never Substance use: never Spiritual care concerns: No Comments At the time of my signature, I reviewed and agree with the nursing past medical, surgical, social, and family history. There is no relevant family history pertinent to the patient complaint. Exam Const: General: healthy appearing, no acute distress, alert and well nourished Nutritional Appearance: well nourished and obese Orientation/consciousness: patient oriented x3 Limitations: no limitations HENMT: Head: normal to inspection Ears: external ears normal Eyes: General: appearance normal, both eyes and all related structures Pupils: Equal, round and reactive pupils present Neck: Neck: normal visual inspection, no lymphadenopathy and no meningeal signs Chest: Chest palpation & inspection: normal inspecti
== END 2022-04-03 19:51 | disposition home or self-care (01) ==
PROVIDERS: Emergency Provider Nurse Practitioner; PCP Nurse Practitioner Adult Health
DX: N39.0 Urinary tract infection, site not specified (principal); I10 Essential (primary) hypertension; Z86.711 Personal history of pulmonary embolism; F41.9 Anxiety disorder, unspecified; Z79.01 Long term (current) use of anticoagulants
CPT/HCPCS: 81003; 87077; 87086; 87186; 99213; G0463

== ENCOUNTER → 2022-04-29 11:38 | Outpatient (CLI) | payer OTHER, SELFPAY ==
--- NOTE | ~2022-04-29 | XR_ITS ---
EXAMINATION: XR lumbar spine min 4V DATE: 04/29/2022 11:55 INDICATION: Low back pain TECHNIQUE: Anteroposterior, lateral, and bilateral oblique views of the lumbar spine, and cone-down l ateral view of the lumbosacral junction were obtained. COMPARISON: 06/10/2012; MRI, 10/28/2021 FINDINGS: There is severe loss of intervertebral disc space height at L5-S1. There are 2 mm of dorothy listhesis of L4 on L5. The vertebral body heights are maintained. There is no fracture. There is mult ilevel moderate to severe facet joint osteoarthritis. Small degenerative osteophytes project from the anterior endplates of multiple vertebral bodies. IMPRESSION: 1. Moderate lumbar spondylosis without acute findings or significant interval change. Reviewed, dictated and finalized at location F. ER SUPERVISOR IMPRESSION: 1. Moderate lumbar spondylosis without acute findings or significant interval brett reeves
== END ==
PROVIDERS: PCP Nurse Practitioner Adult Health; Visit Provider Nurse Practitioner Adult Health
DX: M47.26 Other spondylosis with radiculopathy, lumbar region (principal)
CPT/HCPCS: 72110

== ENCOUNTER 2022-05-28 09:56 | Outpatient (CLI) | payer OTHER, SELFPAY ==
[2022-05-28 10:44] LABS: INR 1.1; Prothrombin Time 13.7 Seconds (11.1-14.7)
== END 2022-05-28 09:57 | disposition home or self-care (01) ==
LOC: ANHLAB 10:00
PROVIDERS: PCP Nurse Practitioner Family; Visit Provider Pain Medicine Pain Medicine
DX: Z79.01 Long term (current) use of anticoagulants (principal)
CPT/HCPCS: 36415; 85610

== ENCOUNTER → 2022-07-21 15:58 | Outpatient (CLI) | payer OTHER, SELFPAY ==
--- NOTE | ~2022-07-21 | MM_ITS ---
EXAMINATION: MM screening oralia BI w aaron HISTORY: Screening mammogram TECHNIQUE: Craniocaudal and mediolateral oblique 3-D tomosynthesis images were obtained and synthetic 2-D images were generated. CAD analysis was submitted and interpreted. COMPARISON: No prior mammogram is available for comparison at this institution. BREAST PARENCHYMAL COMPOSITION: There are scattered areas of fibroglandular density. FINDINGS: There is no evidence of suspicious mass, calcification, or architectural distortion to sugg est malignancy in either breast. There has been no suspicious interval change. IMPRESSION: 1. No mammographic evidence of malignancy. 2. Recommend routine screening mammography in one year. BI-RADS Category 1: Negative Reviewed, dictated and finalized at location A. 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
== END ==
PROVIDERS: PCP Nurse Practitioner Family; Visit Provider Nurse Practitioner Family
DX: Z12.31 Encounter for screening mammogram for malignant neoplasm of breast (principal)
CPT/HCPCS: 77063; 77067

== ENCOUNTER 2023-01-06 09:08 | Outpatient (CLI) | payer OTHER, SELFPAY ==
--- NOTE | 2023-01-11 12:08 | P.PCNPFT_ITS ---
PFT Procedure Performed PFT Procedure Performed Spirometry with Pre/Post Bronchodilator Plethysmography (Lung Vol) Diffusing Cap (DLCO) Flow Vol Loop PFT Interpretation Date of Service: 01/06/2023 Requesting: Phylicia Brunson [facility] Reason for study: Asthma PULMONARY FUNCTION TESTS Results are reliable and reproducible. SPIROMETRY: Pre bronchodilator FEV1 is 3.07 L, 106% predicted, normal. Pre bronchodilator FVC is 3.68 L, 104% predicted, normal. FEV1/ FVC is 83%, normal. Small airway flows are normal. After bronchodilator there is a 6% increase in the FEV1, 112%, 3.24 L, normal. There is a 1% increase in the FVC, 105% predicted, 3.71 L. LUNG VOLUMES: Total lung capacity is 4.79 L, 98% predicted, normal. Residual volume is 1.11 L, 71% predicted, normal. RV /TLC is 23%, normal. DIFFUSION: DLCO is 21, 90%, normal. DLCO /VA is 3.95, 82% normal. FLOW VOLUME LOOP: Unremarkable. IMPRESSION: This patient has normal spirometry, normal lung volumes and normal diffusion. No significant response to bronchodilator. Lack of response to bronchodilator should not preclude use if clinically indicated. Compared to a prior study on 03/09/2022 values are similar.
== END 2023-01-06 09:09 | disposition home or self-care (01) ==
PROVIDERS: PCP Nurse Practitioner Family; Visit Provider Nurse Practitioner
DX: J45.909 Unspecified asthma, uncomplicated (principal)
CPT/HCPCS: 94060; 94726; 94729

== ENCOUNTER 2023-02-21 12:40 | Emergency (ER) | payer OTHER, SELFPAY ==
[2023-02-21 13:08] VITALS: BP 126/76; PULSE 79; RESP 16; TEMP 36.9; O2SAT 99
--- NOTE | 2023-02-21 13:47 | ED.FEMALEGU ---
HPI - Female Genitourinary General Chief complaint: Urogenital-Female Stated complaint: Urogenital Female Time Seen by Provider: 02/21/23 13:43 Source: patient Mode of arrival: ambulatory Limitations: no limitations History of Present Illness HPI Narrative: Patient presents today with a 10 day history of urinary urgency, dysuria, lower abdominal discomfort, and frequency. Today she noted blood in her urine and is not supposed to start her period for 2 more weeks. She is currently taking Eliquis for previous pulmonary emboli. Related Data Home Medications Medication Instructions Recorded Confirmed albuterol sulfate 2.5 mg/3 mL 2.5 mg QID PRN Shortness Of Breath 10/19/21 11/08/21 (0.083 %) solution for nebulization albuterol sulfate 90 mcg/actuation 90 mcg inhalation QID PRN 10/19/21 11/08/21 aerosol inhaler Shortness Of Breath alprazolam 0.5 mg tablet 0.5 mg PO BID PRN Anxiety 10/19/21 11/08/21 gabapentin 300 mg capsule 300 mg PO TID 10/19/21 11/08/21 hydrochlorothiazide 25 mg tablet 25 mg PO DAILY 10/19/21 11/08/21 pantoprazole 40 mg tablet,delayed 40 tablet PO DAILY 11/08/21 11/08/21 release vilazodone 40 mg tablet (Viibryd) 40 tablet PO DAILY 11/08/21 11/08/21 Mounjaro 04/03/22 azelastine 137 mcg (0.1 %) nasal intranasal 04/03/22 spray aerosol apixaban 5 mg tablet (Eliquis) mg 02/21/23 methocarbamol 500 mg tablet mg 02/21/23 02/21/23 Allergies Allergy/AdvReac Type Severity Reaction Status Date / Time latex Allergy Rash Verified 02/21/23 13:29 Review of Systems Review of Systems: CONSTITUTIONAL: Denies body aches, fever, chills, or sweats. EYES: Denies visual changes, redness, or discharge. ENT: Denies rhinorrhea, congestion, sore throat, or otalgia. CARDIOVASCULAR: Denies chest pain, palpitations, or edema. RESPIRATORY: Denies cough or dyspnea. GASTROINTESTINAL: Denies nausea, vomiting, or diarrhea. GENITOURINARY: + urgency, hematuria, dysuria, frequency, suprapubic pain SKIN: Denies rash, itching, or wounds. MUSCULOSKELETAL: Denies back pain, joint pain, or myalgia. NEUROLOGIC: Denies headache, numbness, tingling, or weakness. PSYCH: Denies depression or anxiety. [facility] Past Medical History Medical History Anxiety Cholecystitis Hypertension Pulmonary embolism Sciatica Surgical History Surgical History History of microdiscectomy Social History Social History Smoking status: Never smoker Alcohol intake: never Substance use: never Spiritual care concerns: No Comments At time of signature, I have reviewed and agree with nursing past medical, surgical, social and family history unless otherwise noted. Please see nursing chart for further information. There is no relevant family history pertinent to the presenting complaint Exam Narrative: GENERAL: Well-appearing, well-nourished, and in no acute distress. HEAD: Normocephalic, atraumatic. EYES: EOMI. No redness or drainage. Conjunctivae normal. ENT: Mucous membranes pink and moist. NECK: Normal AROM. CHEST: No respiratory distress. Clear to auscultation. HEART: Regular rate and rhythm. No murmur appreciated. EXTREMITIES: Normal range of motion. No edema. SKIN: Warm, dry, no rash. Capillary refill normal. Normal skin turgor. NEURO: No focal deficits. Alert and oriented x3. Gait steady. PSYCH: Normal affect. No signs of depression or anxiety. Course Course Level of Care: Express Care Visit Vital Signs Vital signs: Vital Signs Temperature 98.5 F 02/21/23 13:08 Pulse Rate 79 02/21/23 13:08 Respiratory Rate 16 02/21/23 13:08 Blood Pressure 126/76 02/21/23 13:08 Pulse Oximetry 99 02/21/23 13:08 Oxygen Delivery Room Air 02/21/23 13:08 Temperature 98.5 F 02/21/23 13:08 Pulse Rate 79 02/21/23 1
== END 2023-02-21 13:58 | disposition home or self-care (01) ==
PROVIDERS: Emergency Provider Nurse Practitioner; PCP Nurse Practitioner Family
DX: N30.01 Acute cystitis with hematuria (principal); I10 Essential (primary) hypertension; F41.9 Anxiety disorder, unspecified; Z86.711 Personal history of pulmonary embolism; Z79.01 Long term (current) use of anticoagulants
CPT/HCPCS: 81003; 87086; 87088; 99213; G0463

== ENCOUNTER → 2023-03-24 08:16 | Outpatient (CLI) | payer OTHER, SELFPAY ==
--- NOTE | ~2023-03-24 | XR_ITS ---
XR shoulder RT min 2V 03/24/2023 08:37 Indication: Right shoulder pain Procedure: 4 views right shoulder Comparison: No prior studies for comparison. Findings: There are degenerative changes of the acromioclavicular joint with marginal osteophytes. No fracture, subluxation or dislocation. There is anatomic alignment. No soft tissue abnormality. Impression: 1: Moderate osteoarthritis of the right acromioclavicular joint. Reviewed, dictated and finalized at location B. Impression: 1: Moderate osteoarthritis of the right acromioclavicular joint.
== END ==
PROVIDERS: PCP Nurse Practitioner Family; Visit Provider Nurse Practitioner Family
DX: M19.011 Primary osteoarthritis, right shoulder (principal)
CPT/HCPCS: 73030

== ENCOUNTER → 2023-08-13 13:48 | Outpatient (CLI) | payer OTHER, SELFPAY ==
--- NOTE | ~2023-08-13 | US_ITS ---
EXAMINATION: US pelvic complete w TV DATE: 08/13/2023 14:19 INDICATION: Menorrhagia TECHNIQUE: Multiple transabdominal and endovaginal sonographic images of the pelvis were obtained. COMPARISON: None. FINDINGS: The uterus measures 8 point 4 x 4 by 4.4 cm. The endometrial complex measures 6 mm. The rig ht ovary measures 2.1 x 1.5 x 1.7 cm. The left ovary measures 2.3 x 1.6 x 2.1 cm. There is normal vas cular flow in the ovaries. There is no free fluid in the pelvis. IMPRESSION: 1. No sonographic correlate for the patient's symptoms. Reviewed, dictated and finalized at location F. 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
== END ==
PROVIDERS: PCP Nurse Practitioner Adult Health; Visit Provider Obstetrics & Gynecology
DX: N92.0 Excessive and frequent menstruation with regular cycle (principal)
CPT/HCPCS: 76830; 76856

== ENCOUNTER 2024-02-28 10:27 | Outpatient (CLI) | payer OTHER, SELFPAY ==
--- NOTE | ~2024-02-28 | XR_ITS ---
3 VIEWS PARANASAL SINUSES Ordering provider: Cristela Lobo APRN History: . R51.9 - Headache, unspecified . Comparison: None. FINDINGS: BONES: No acute fracture as visualized. PARANASAL SINUSES: Well aerated. No air fluid levels. SOFT TISSUES: Normal. IMPRESSION: NO EVIDENCE OF SINUS DISEASE. CONSIDER FOLLOW UP CT PARANASAL SINUSES IF THERE IS CONTINUED CONCERN. Reviewed, dictated and finalized at location A.
== END 2024-02-28 10:28 | disposition home or self-care (01) ==
PROVIDERS: PCP Nurse Practitioner Adult Health; Visit Provider Nurse Practitioner Adult Health
DX: R51.9 Headache, unspecified (principal)
CPT/HCPCS: 70220

== ENCOUNTER 2024-05-10 11:50 | Outpatient (CLI) | payer OTHER, SELFPAY ==
--- NOTE | ~2024-05-10 | MM_ITS ---
EXAMINATION: MM screening oralia BI w aaron HISTORY: Screening TECHNIQUE: Craniocaudal and mediolateral oblique 3-D tomosynthesis images were obtained and synthetic 2-D images were generated. CAD analysis was submitted and interpreted. COMPARISON: Comparison to multiple prior studies sequentially, with oldest reviewed study dated 12/2022. BREAST PARENCHYMAL COMPOSITION: Not dense: There are scattered areas of fibroglandular density. FINDINGS: There is no evidence of suspicious mass, calcification, or architectural distortion to sugg est malignancy in either breast. There has been no suspicious interval change. IMPRESSION: 1. No mammographic evidence of malignancy. 2. Recommend routine screening mammography in one year. BI-RADS Category 1: Negative Reviewed, dictated and finalized at location B. 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
== END 2024-05-10 11:51 | disposition home or self-care (01) ==
LOC: MICIMG 11:50
PROVIDERS: PCP Nurse Practitioner Adult Health; Visit Provider Obstetrics & Gynecology
DX: Z12.31 Encounter for screening mammogram for malignant neoplasm of breast (principal)
CPT/HCPCS: 77063; 77067

== ENCOUNTER 2025-03-07 09:29 | Outpatient (CLI) | payer OTHER, SELFPAY ==
--- NOTE | ~2025-03-07 | XR_ITS ---
EXAMINATION: XR foot LT min 3V, 03/07/2025 9:30 CDT HISTORY: lateral foot pain x 2 weeks, NKI COMPARISON: No comparisons available. Findings: No acute fracture or malalignment. No significant degenerative changes. Soft tissues unremarkable. Impression: No acute fracture or malalignment. Reviewed, dictated and finalized at location A. Impression: No acute fracture or malalignment.
--- OUTSIDE RECORDS SUMMARY | 2025-03-07 10:11 | XMS_ITS | Clinical Summary ---
Author Organization [facility] Address [address] [place] [address] Care Team Providers Care Pearl Maker Name Role Phone Cristela Lobo NP Primary Care Provider [phone] Allergies No known active allergies Medications ALPRAZolam 0.5 MG tablet Take 0.5 mg by mouth daily as needed for Sleep. Active hydroCHLOROthiazide 25 MG tablet Take 25 mg by mouth every morning. Active vilazodone 40 MG tablet Take 40 mg by mouth daily. Take with food Active pantoprazole EC 20 MG tablet Take 20 mg by mouth daily. Active Semaglutide-Weight Management 1.7 MG/0.75ML Solution Auto-injector Active ondansetron 4 MG disintegrating tablet Take 1 tablet (4 mg total) by mouth every 8 (eight) hours as needed for Nausea. 20 tablet 2 Active Family History Medical History Relation Comments Depression Father Heart Disease Father Hypertension Father Mental Health Father Depression Maternal Grandfather Cancer Mother Diabetes Mother Hypertension Mother Relation Status Comments Father Maternal Grandfather Mother Social History Tobacco Use Types Packs/Day Years Used Date Smoking Tobacco: Never Smokeless Tobacco: Never Alcohol Use Standard Drinks/Week Comments Yes 0 (1 standard drink = 0.6 oz pur e alcohol) ocassionally Comments No Sex and Gender Information Value Date Recorded Sex Assigned at Female 09/22/2021 9:45 PM CDT Legal Sex Female 8:52 PM CDT Gender Identity Female 09/22/2021 9:45 PM CDT Sexual Orientation Straight 09/22/2021 9: 45 PM CDT Last Filed Vital Signs Vital Sign Reading Time Taken Comments Blood Pressure 171/113 09/22/2021 9:32 PM CDT Pulse 86 09/22/2021 9:45 PM CDT Temperature - - Respiratory Rate 18 09/22/2021 9:45 PM CDT Oxygen Saturation 100% 09/22/2021 9:45 PM CDT Inhaled Oxygen Concentration - - Weight 166.9 kg (368 lb) 09/22/2021 9:30 PM CDT Height 160 cm (5' 3) 09/22/2021 9:30 PM CDT Body Mass Index 65.19 09/22/2021 9:30 PM CDT Plan of Treatment Health Maintenance Due Date Last Done Comments Cervical Cancer Screening Pap Smear (Age 30 to 64) Every 3 Years 1981 Annual Physical 1984 Hepatitis C 1999 DTaP, Tdap and Td Vaccines (6 - Tdap) 12/15/2005 12/14/2005, 01/19/1996, 12/10/1986, Additional history exists Cervical Cancer Screening Pap with HPV Testing (Age 30 to 64) Every 5 Years 2011 Cervical Cancer Screening with HPV 2011 Mammogram Screening 2021 COVID-19 Vaccine ( season) 2025 05/30/2021, 08/19/2020, 07/22/2020 Hepatitis B Vaccines Completed 12/18/1996, 07/17/1996, 01/19/1996 HPV Vaccines Completed 06/08/2007, 10/13, 09/13/2006 Meningococcal B Vaccine Aged Out No l onger eligible based on patient's age to complete this topic Meningococcal Vaccine Aged Out No meir liza eligible based on patient's age to complete this topic Pneumococcal Vaccine: Pediatrics (0 to 5 Years) and At-Risk Patients (6 to 49 Years) Aged Out No longer eligible based on patient's age to complete this topic RSV Immunizations Under 20 Months Aged Out No longer eligible based on patient's age to complete this topic Insurance [facility] Care Teams Pearl Maker Relationship Specialty Start Date End Date Cristela Lobo NP [address] [place] [address] PCP - General NURSE PRACTITIONER 09/22/21
--- OUTSIDE RECORDS SUMMARY | 2025-03-07 10:11 | XMS_ITS | Clinical Summary ---
Author Organization [facility] Address [address] [place] [address] Phone Care Team Providers Care Sweatband Maker Name Role Phone Unavailable Primary Care Provider Unavailabl e Allergies Active Allergy Reactions Criticality Noted Date Comments Latex Rash Low 11/04/2021 No facial swelling, rash at site Metformin Diarrhea Medium 07/19/2020 Constant severe diarrhea, got a UTI Medications triamcinolone acetonide (KENALOG) 0.1 % Cream Apply to affected area 2 times daily as needed for Other (See Comment) (psoriasis). Active meclizine (ANTIVERT) 25 mg tablet Take 25 mg by mouth 3 times daily as needed for Dizziness. Active albuterol (PROVENTIL,KIERRA SUMI) 2.5 mg /3 mL (0.083 %) Solution for Nebulization Take 2.5 mg by inhalation every 4 hours as needed for Shortness of Breath. Active vilazodone (VIIBRYD) 40 mg Tablet Take 40 mg by mouth daily. Active calcipotriene-be tamethasone (Enstilar) 0.005-0.064 % Foam Apply 1 Dose to affected area 1 time daily as needed for Other (See Comment) (psoriasis). Active ALPRAZolam (XANAX) 0.5 mg tablet Take 0.5 mg by mouth 1 time daily as needed for Anxiety. Active tacrolimus (PROTOPIC) 0.1 % Ointment Apply to affected area 2 times daily as needed for Other (See Comment) (psoriasis). Active nystatin (MYCOSTATIN) 100,000 unit/gram Cream Apply to affected area 2 times daily as needed for Other (See Comment) (to wick away moisture to avoid yeast infx). 2 Active methocarbamoL (ROBAXIN) 500 mg tablet Take 1,000 mg by mouth 2 times daily as needed for Spasm. 2 Active Azelaic Acid 15 % Gel Apply to affected area 1 time daily as needed for Other (See Comment) (rosacea). 2 Active gabapentin (NEURONTIN) 600 mg tablet Take 600 mg by mouth 2 times daily. 3 Active budesonide-glyco pyr-formoterol 160-9-4.8 mcg/actuation HFA Aerosol Inhaler Take 2 Puffs by inhalation 2 times daily. 3 Active albuterol sulfate HFA 90 mcg/actuation aerosol inhaler Take 2 Puffs by inhalation every 4 hours as needed for Shortness of Breath. 3 Active docusate sodium (COLACE) 100 mg capsule Take 1 Capsule (100 mg) by mouth 2 times daily. 60 Capsule 05/29/2023 1:43 PM HOURLY SHIFT MANAGER 3 Active Additional Information Patient not taking.Reported on 02/18/2024 ondansetron (ZOFRAN ODT) 4 mg Tablet, Rapid Dissolve Dissolve 1 Tablet (4 mg) on top of tongue and swallow with saliva every 6 hours as needed for nausea/vomiting . 40 Tablet 05/29/2023 1:43 PM HOURLY SHIFT MANAGER 3 Active omeprazole (PriLOSEC) 40 mg Capsule, Delayed Release(E.C.) Take 1 Capsule (40 mg) by mouth daily. Open capsule and pour contents into sugar-free jell-O or other food of similar consistency. 30 Capsule 2 05/29/2023 1:43 PM HOURLY SHIFT MANAGER 3 Active HYDROcodone-acet aminophen (NORCO) 5-325 mg tabletIndication s:S/P laparoscopic surgery Take 1 Tablet by mouth every 6 hours as needed for Pain. Max Daily Amount: 4 Tablets 20 Tablet 05/29/2023 1:43 PM HOURLY SHIFT MANAGER 3 Active Additional Information Patient not taking.Reported on 02/18/2024 naloxone (NARCAN) 4 mg/spray [place], Non-Aerosol EMERGENCY USE ONLY: Administer 1 spray (4 mg) in one nostril one time. October repeat in alternating nostrils every 2-3 min until responsive or EMS arrives. 2 Each 3 05/29/2023 1:43 PM HOURLY SHIFT MANAGER 3 Active SPIRONOLACTONE ORAL Take by mouth. Activ e Eliquis 5 mg tabletIndication s:Acute saddle pulmonary embolism without acute cor pulmonale (CMS/HCC) TAKE 1 TABLET(5 MG) BY MOUTH TWICE DAILY 60 Tablet 3 5 Active Active Problems Problem Noted Date Diagnosed Date Iron deficiency anemia due to chronic blood loss 01/15/2023 H/o acute saddle pulmonary e mbolism without acute cor pulmonale 08/05/2022 Bronchospasm 07/02/2022 Anxiety 07/02/2022 Depressive disorder 07/02/2022 Dysmenorrhea 07/02/2022 Fatigue 07/02/2022 Nonspecific syndrome suggestive of viral illness 07/02/2022 Posterior rhinorrhea 07/02/2022 Seasonal allergies 07/02/2022 Nasal congestion 03/17/2022 Type 2 diabetes mellitus wit hout complication, without long-term current use of insulin 02/09/2022 Morbid obesity 01/30/2022 Aphasia 01/02/2022 Sinus tachycardia 01/02/2022 Prediabetes 12/16/2021 Dyspnea on exertion 12/10/2021 Impaired glucose tolerance 11/20/2021 Acute pulmonary embolism 11/09/2021 Lumbar radiculopathy 10/13/2021 Chronic sinusitis 09/10/2021 Acute bronchitis 09/10/2021 Psoriasis 08/13/2021 Arthralgia of right ankle 05/26/2021 Ingrowing toenail 05/26/2021 MARLYS on CPAP 04/10/2021 Paronychia of toe of left foot 11/25/2020 Vitamin B12 deficiency (non anemic) 02/28/2020 Mild intermittent asthma 12/20/2019 Gastroesophageal reflux disease without esophagi tis 12/20/2019 Calcaneal spur of left foot 11/02/2019 Asthma 05/17/2019 Morbid obesity with BMI of 60.0-69.9, adult 11/12/2018 Low serum vitamin B12 04/05/2018 HTN (hypertension), benign Encounters Date Type Department Care Team Description 02/27/2025 External Device Data STL ABSTRACTION Provider, Abstract 02/14/2025 External Device Data STL ABSTRACTION Provider, Abstract 01/31/2025 External Device Data STL ABSTRACTION Provider, Abstract 01/24/2025 Refill [facility] Oncology and Hematology 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 (CMS/HCC) 12/27/2024 External Device Data STL ABSTRACTION Provider, Abstract 12/27/2024 External Device Data STL ABSTRACTION Provider, Abstract 12/12/2024 External Device Data STL ABSTRACTION Provider, Abstract 12/05/2024 External Device Data STL ABSTRACTION Provider, Abstract from Last 3 Months Immunizations Immunization Administration Dates Next Due (GARDASIL)(9-45 YRS) HUMAN PAPILLOMAVIRUS VACCINE, TYPES 6, 11, 16, 18, QUADRIVALENT (4VHPV), 3 DOSE, IM 06/08/2007,11/09/2006,09/13/2006 (PFIZER)(12 YR UP) COVID-19 VACCINE - EMERGENCY USE AUTHORIZATION, MRNA, [id number](PF) 30 MCG/0.3 ML IM SUSP 05/30/2021,08/19/2020,07/22/2020 INFLUENZA VACCINE QUADRIVALE NT 6 MOS UP CELL DERIVED PF IM 03/21/2020 INFLUENZA VACCINE QUADRIVALE NT 6 MOS UP IM 03/11/2021,03/25/2020,03/28/2019,03/14 INFLUENZA VACCINE TRIVALENT LIVE (2 YR-49 YR), 0.2ML, INTRANASAL (HOME ADMIN) 03/09/2022 Influenza Seasonal Unspecifi ed Formulation PF IM 03/13/2014 Influenza Vaccine Tri Split 4+ Im 03/20/2016,,03/07/2013 Influenza Vaccine Tri Split 4+ Pf Im 03/13/2014 Family History Relation Name Status Comments Father Mother Social History Tobacco Use Types Packs/Day Years Used Date Smoking Tobacco: Never Smokeless Tobacco: Never Tobacco Cessation:Counseling Given: Not Answered Alcohol Use Standard Drinks/Week Comments Yes 0 (1 standard drink = 0.6 oz pur e alcohol) rare Feeling Safe Answer Date Recorded Are you in a relationship wi th someone who hurts you emotionally and/or physically? No 05/28/2023 Food Insecurity Answer Date Recorded Social/Environmental Concerns No concerns Transportation Needs Answer Date Record ed Social/Environmental Concerns No concerns Housing Stability Answer Date Recorded Social/Environmental Concerns No concerns Utility Needs Answer Date Recorded Social/Environmental Concerns No concerns Comments No Sex and Gender Information Value Date Recorded Sex Assigned at Not on file Legal Sex Female 6:04 PM CDT Gender Identity Not on file Sexual Orientation Not on file Last Filed Vital Signs Vital Sign Reading Time Taken Comments Blood Pressure 112/77 08/24/2024 2:37 PM CDT Pulse 62 08/24/2024 2:37 PM CDT Temperature 36.2 C (97.2 F) 08/24/2024 2:37 PM CDT Respiratory Rate 16 08/24/2024 2:37 PM CDT Oxygen Saturation 96% 08/24/2024 2:37 PM CDT Inhaled Oxygen Concentration - - Weight 114.3 kg (252 lb) 08/24/2024 2:37 PM CDT Height 162.6 cm (5' 4) 08/24/2024 2:37 PM CDT Body Mass Index 43.26 08/24/2024 2:37 PM CDT Plan of Treatment Upcoming Encounters Date Type Department Care Team (Late st Contact Info) Description 05/01/2025 2:30 PM HOURLY SHIFT MANAGER Office Visit [facility] Oncology and Hematology [facility] [place] [address] [place] [address] Zoraida Yoder, [address] [place] [address] Health Maintenance Due Date Last Done Comments DIABETES ANNUAL FOOT EXAM 1999 DIABETES ANNUAL RETINAL EXAM 1999 DIABETES MICROALBUMIN ANNUAL SCREEN 1999 DTAP/TDAP/TD VACCINES (1 - Tdap) 2000 HEPATITIS B VACCINES (1 of 3 - 19+ 3-dose series) 2000 HPV/Cotest (21-29) 2002 CERVICAL CANCER SCREENING 2011 HPV/Cotest (30-65) 2011 PAP SMEAR 2011 BREAST CANCER SCREENING 2021 LDL CHOLESTEROL ANNUAL 03/25/2023 03/25/2022 DIABETES HBA1C Q 6 MONTHS 08/30/20232022, 03/25/2022, 11/09/2021 INFLUENZA VACCINE (#1) 2025 , 03/11/2021, 03/25/2020, Additional history exists COVID-19 Vaccine ( - 2024-2 6 season) 2025 04/29/2023, 05/30/2021, 08/19/2020, Additional history exists HPV VACCINES Completed 06/08/2007, 10/13, 09/13/2006 Procedures Procedure Name Priority Date/Time Associated Diagnosis Comments LIPID PANEL Routine 03/25/2022 8:18 AM CDT Screening for lipid disorders HEMOGLOBIN A1C Routine 03/25/2022 8:18 AM CDT Type 2 diabetes mellitus without complication, without long-term current use of insulin ([facility]) from Last 3 Months or Most Recently Relevant to Health Maintenance Results * (ABNORMAL) HEMOGLOBIN A1C (03/25/2022 8:18 AM CDT) HEMOGLOBIN A1C 5.9(H) <5.7 % of total Hgb [facility] Comment: For someone without known diabetes, a hemoglobin A1c value between 5.7% and 6.4% is consistent with prediabetes and should be confirmed with a follow-up test. For someone with known diabetes, a value <7% indicates that their diabetes is well controlled. A1c targets should be individualized based on duration of diabetes, age, comorbid conditions, and other considerations. This assay result is consistent with an increased risk of diabetes. Currently, no consensus exists regarding use of hemoglobin A1c for diagnosis of diabetes for children. ESTIMATED AVERAGE GLUCOSE (MG/DL) 123 mg/dL [facility] ESTIMATED AVERAGE GLUCOSE (MMOL/L) 6.8 mmol/L [facility] Comment: FASTING:YES FASTING: YES Test Performed at: [facility] [place] [address] [address] [address] Milagros Gray Blood 03/25/2022 8:18 AM CDT 03/25/2022 8:19 AM CDT us Jolene Combs NP CHEMISTRY ORDERABLES Final Result [facility] [phone] [facility] [place] [address] [address] [place] [address] * (ABNORMAL) LIPID PANEL (03/25/2022 8:18 AM CDT) CHOLESTEROL 205(H) <200 mg/dL [facility] HDL 57 > OR = 50 mg/dL [facility] TRIGLYCERIDE 191(H) <150 mg/dL [facility] LDL CALCULATED 117(H) mg/dL (calc) [facility] Comment: Reference range: <100 Desirable range <100 mg/dL for primary prevention; <70 mg/dL for patients with CHD or diabetic patients with > or = 2 CHD risk factors. LDL-C is now calculated using the Nathaniel calculation, which is a validated novel method providing better accuracy than the Friedewald equation in the estimation of LDL-C. Patricio DENNISON et al. JANY. 2013;310(19): 2230-8577 (http://education.[employer].VisibleGains/faq/LCE627) CHOL/HDL RATIO 3.6 <5.0 (calc) [facility] TOTAL NON-HDL CHOL(LDL+VLDL) 148(H) <130 mg/dL (calc) [facility] Comment: For patients with diabetes plus 1 major ASCVD risk factor, treating to a non-HDL-C goal of <100 mg/dL (LDL-C of <70 mg/dL) is considered a therapeutic option. FASTING:YES FASTING: YES Test Performed at: [facility] [address] [address] Rafal Abarca D.O., MPH Blood 03/25/2022 8:18 AM CDT 03/25/2022 8:19 AM CDT Jolene Combs NP CHEMISTRY ORDERABLES Final Result [facility] [phone] [facility] [address] [address] from Last 3 Months or Most Recently Relevant to Health Maintenance Insurance [facility] CHO[facility] [id number] RX [employer] Member Subscriber Plan / Payer (Ef fective for All Dates) Name:Anna Ashley Relation to Subscriber:Self Name:Ashley Castillo Payer ID:Not on file Group ID:[id number] Type:RX Commercial Address: [place] [employer] [place] [employer] (INTERNAL) [facility] [employer] [facility] CHOICE [id number] Advance Directives For more information, please contact: [phone] * Full Code (Latest Code Status on File) Date Activated Date Inactivated Comments 05/28/2023 1:23 PM 05/29/2023 4:58 PM * Full Code Date Activated Date Inactivated Comments 05/28/2023 8:15 AM 05/28/2023 1:23 PM * Full Code Date Activated Date Inactivated Comments 09/11/2022 8:56 AM 09/11/2022 12:21 PM * Full Code Date Activated Date Inactivated Comments 11/09/2021 1:51 AM 11/16/2021 4:46 PM * Full Code Date Activated Date Inactivated Comments 11/09/2021 1:36 AM 11/09/2021 1:51 AM
--- OUTSIDE RECORDS SUMMARY | 2025-03-07 10:11 | XMS_ITS | Clinical Summary ---
Author Organization [facility] [address] Address [address] [place] [address] Care Team Providers Care Sleep Technician Name Role Phone Cristela Lobo NP Primary Care Provider [phone] Allergies Active Allergy Reactions Criticality Noted Date Comments Latex Rash Medium 11/04/2021 Metformin Diarrhea High 07/19/2020 Constant severe diarrhea, got a UTI Medications warfarin (COUMADIN) 3 mg tablet 04/28/20 22 Active warfarin (COUMADIN) 4 mg tablet 04/28/20 22 Active vortioxetine (Trintellix) 20 mg tablet Trintellix 20 mg tablet TK 1 T PO QD Active vilazodone (VIIBRYD) 40 mg tablet Take 1 tablet (40 mg total) by mouth daily 05/14/20 22 Active triamcinolone (KENALOG) 0.1 % cream triamcinolone acetonide 0.1 % topical cream APPLY A THIN LAYER TO THE AFFECTED AREA(S) BY TOPICAL ROUTE 2 TIMES PER DAY Active tirzepatide (Mounjaro) 7.5 mg/0.5 mL pen injector Inject 0.5 mL (7.5 mg total) under the skin once a week 03/20/20 22 Active tiotropium bromide (SPIRIVA RESPIMAT) 2.5 mcg/actuation inhaler Spiriva Respimat 2.5 mcg/actuation solution for inhalation INHALE 2 PUFFS BY MOUTH EVERY DAY DIRECTED Active tacrolimus (PROTOPIC) 0.1 % ointment APPLY TO EYELIDS TWICE DAILY DIRECTED 04/27/20 22 Active SSD 1 % cream APPLY TOPICALLY TO TOE NAILS DAILY FOR 2 WEEKS 03/09/20 22 Active acetaminophen (TYLENOL) 325 mg tablet Take 2 tablets (650 mg total) by mouth every 6 (six) hours as needed 11/17/19 Active albuterol HFA (PROVENTIL HFA,VENTOLIN HFA,PROAIR HFA) 90 mcg/actuation inhaler albuterol sulfate 90 mcg/actuation HFA aerosol inhaler 06/14/18 70 Active albuterol 1.25 mg/3 mL nebulizer solution Active ALPRAZolam (XANAX) 0.5 mg tablet Take 1 tablet (0.5 mg total) by mouth daily as needed 05/14/20 Active azelaic acid 15 % gel APPLY TO FACE TWICE DAILY DIRECTED 04/27/20 Active azelastine (ASTELIN) 137 mcg (0.1 %) nasal spray USE 2 SPRAYS IN EACH NOSTRIL TWICE DAILY DIRECTED 03/17/20 22 Active betamethasone (Celestone Soluspan) 6 mg/mL injection Celestone Soluspan 6 mg/mL suspension for injection Active calcipotriene-be tamethasone (Enstilar) 0.005-0.064 % foam Enstilar 0.005 %-0.064 % topical foam Active clobetasoL (TEMOVATE) 0.05 % external solution clobetasol 0.05 % scalp solution Active fluticasone propionate (FLONASE) 50 mcg/actuation nasal spray fluticasone propionate 50 mcg/actuation nasal spray,suspension Active gabapentin (NEURONTIN) 300 mg capsule TAKE 2 CAPSULES BY MOUTH THREE TIMES DAILY NEEDED 04/13/20 Active hydroCHLOROthiaz noemy (HYDRODIURIL) 25 mg tablet Take 25 mg by mouth daily 05/14/20 22 Active ketoconazole (NIZORAL) 2 % shampoo ketoconazole 2 % shampoo Active meclizine (ANTIVERT) 25 mg tablet meclizine 25 mg tablet TK 1 T PO TID PRN Active methocarbamoL (ROBAXIN) 500 mg tablet Take 1,000 mg by mouth 4 (four) times a day 04/08/20 22 Active nystatin cream 05/20/[address] (PROTONIX) 40 mg EC tablet Take 40 mg by mouth daily 04/13/20 22 Active spironolactone (ALDACTONE) 100 mg oral suspension Take 10 mL (100 mg total) by mouth daily Active apixaban (ELIQUIS) 5 mg tablet Take 1 tablet (5 mg total) by mouth 2 (two) times a day Active omeprazole (PriLOSEC) 40 mg capsule Take 1 capsule (40 mg total) by mouth daily Active budesonide-glyco pyr-formoterol (Breztri Aerosphere) 160-9-4.8 mcg/actuation HFA aerosol inhaler Inhale 1 Application 2 (two) times a day Active doxycycline hyclate 100 mg capsule Take 1 tablet/capsule (100 mg total) by mouth 2 (two) times a day Active budesonide-glyco pyr-formoterol (Breztri Aerosphere) 160-9-4.8 mcg/actuation inhalerIndicatio ns:Moderate persistent asthma without complication Inhale 2 puffs 2 (two) times a day Rinse and spit after use - use with aerochamber 1 each 02/08/20 24 Active fluticasone propionate (FLONASE) 50 mcg/actuation nasal sprayIndications :Chronic rhinitis Administer 2 sprays into each nostril daily 16 g 02/08/20 24 Active Additional Information Patient not taking.Reported on 10/10/2024 Active Problems Problem Noted Date Diagnosed Date Vaginitis 12/22/2024 Small fiber neuropathy 12/22/2024 Shoulder pain 12/22/2024 Seborrheic dermatitis 12/22/2024 Regurgitation of stomach contents 12/22/2024 Costal chondritis 12/22/2024 Pain in thoracic spine 12/22/2024 Moderate persistent asthma without complication 02/08/2024 Assessment & Plan (10/10/2024 9:33 AM CDT): Continue Breztri twice daily with AeroChamber Albuterol 2 puffs every 4 hours as needed only, we have discussed indications for use Her recent absolute eosinophilic count was 63 and she does not have a history of peripheral eosinophilia She does not have frequent exacerbations. I will assess for de-escalation of therapy at her next office visit. We have discussed signs and symptoms that would require earlier evaluation or change to her plan of care Assessment & Plan (02/08/2024 10:53 AM CDT): Continue Breztri twice daily with AeroChamber Albuterol as needed only, we have discussed indications for use Staff has re-requested records from previous pulmonary office I will assess for de-escalation of therapy at her next office visit. History of pulmonary embolus (PE) 02/08/2024 Assessment & Plan (10/10/2024 9:34 AM CDT): She continues to follow with hematology. Continue Eliquis Assessment & Plan (02/08/2024 10:56 AM CDT): She continues to follow with hematology. Despite the fact that this was provoked, she remains on apixiban Chronic rhinitis 02/08/2024 Assessment & Plan (10/10/2024 9:35 AM CDT): Continue OTC allergy pill Start fluticasone intrasnasal spray, we have discussed technique I have recommended daily saline nasal rinses in the shower Assessment & Plan (02/08/2024 10:54 AM CDT): Start OTC allergy pill Start fluticasone intrasnasal spray Saline nasal rinses Obstructive sleep apnea 02/08/2024 Assessment & Plan (10/10/2024 9:34 AM CDT): Continue PAP with all sleep and naps She has an appointment to see sleep medicine at the end of this month. She is aware that weight loss may affect her required pressures She is aware of the risks of uncorrected sleep apnea Assessment & Plan (02/08/2024 10:55 AM CDT): Continue PAP with all sleep She has not established with new sleep medicine I will attempt to get a download from [facility] and make adjustments in the interval as she has had substantial weight loss since her bariatric surgery Lumbar spondylosis 02/12/2023 Iron deficiency anemia due to chronic blood loss 01/15/2023 Lumbago with sciatica 11/17/2022 Subconjunctival hemorrhage of left eye Acute saddle pulmonary embolism without acute co r pulmonale 08/05/2022 Fatigue 07/02/2022 Dysmenorrhea 07/02/2022 Depressive disorder 07/02/2022 Anxiety 07/02/2022 BMI 45.0-49.9, adult 05/21/2022 Type 2 diabetes mellitus wit hout complication, without long-term current use of insulin 02/02/2022 Essential (primary) hypertension 01/30/2022 Sinus tachycardia 01/02/2022 Aphasia 01/02/2022 S/P lumbar fusion 11/20/2021 Psoriasis 08/12/2021 Arthralgia of right ankle 05/25/2021 Paronychia of toe of left foot 11/25/2020 Vitamin B12 deficiency (non anemic) 02/28/2020 Gastroesophageal reflux disease without esophagi tis 12/20/2019 Calcaneal spur of left foot 11/02/2019 Asthma 05/16/2019 Encounters Date Type Department Care Team Description 01/12/2025 11:17 AM CDT - 01/12/2025 11:59 PM CDT Hospital Encounter [facility] [address] [place] [address] [id number] Donavan Abebe MD Right shoulder pain, unspecified chronicity (Primary Dx) Discharge Disposition: Discharge to home or self care 01/09/2025 Telephone [facility] Medicine Orthopaedic Surgery [address] [place] [address] 2nd Floor [address] [place] [address] Jeremi Fonseca CMA Scheduling Appointments 01/09/2025 Telephone [facility] Medicine Orthopaedic Surgery [address] [place] [address] Floor [address] [place] [address] Jeremi Fonseca CMA Scheduling Appointments 01/08/2025 Orders Only [facility] Medicine Orthopaedic Surgery [address] [place] [address] Floor [address] [place] [address] Christopher Chacko MD Superior glenoid labrum lesion of right shoulder, subsequent encounter (Primary Dx); Right shoulder pain, unspecified chronicity 01/08/2025 [facility]ation [facility] [id number] [place] [address] Floor [address] [place] [address] Christopher Chacko MD 01/04/2025 10:56 AM CDT - 01/04/2025 11:59 PM CDT Hospital Encounter [facility] [address] [place] [phone] Right shoulder pain, unspecified chronicity Discharge Disposition: Discharge to home or self care 01/04/2025 10:41 AM CDT - 01/04/2025 11:59 PM CDT Hospital Encounter [facility] [address] [place] [phone] Right shoulder pain, unspecified chronicity Discharge Disposition: Discharge to home or self care 12/25/2024 10:20 AM CDT - 12/25/2024 11:59 PM CDT Hospital Encounter [facility] Radiology [facility] ([facility]) [address] [place] [id number] Discharge Disposition: Discharge to home or self care 12/25/2024 10:20 AM CDT Office Visit [facility] Medicine Orthopaedic Surgery [address] [place] [address] 2nd Floor [address] [place] [address] Christopher Chacko MD Right shoulder pain, unspecified chronicity (Primary Dx) 12/25/2024 10:14 AM CDT - 12/25/2024 11:59 PM CDT Hospital Encounter [facility] [address] [place] [id number] Right shoulder pain, unspecified chronicity Discharge Disposition: Discharge to home or self care from Last 3 Months Surgical History Surgery Date Site/Laterality Comments CHOLECYSTECTOMY MICRODISCECTOMY GASTRIC BYPASS 05/14/2023 - 06/13/2023 FLUORO GUIDED INJECTION SHOU LDER RIGHT 01/12/2025 Right Medical History Medical History Date Comments Anxiety Arthritis Asthma Depression GERD (gastroesophageal reflux disease) Hypertension Low back pain Morbid obesity (HCC) Obesity Pulmonary embolism Sleep apnea Vitamin D deficiency Diabetes mellitus History of pulmonary embolus (PE) 02/08/2024 Chronic rhinitis 02/08/2024 Family History Medical History Relation Name Comments Depression Father Habib Ouechani Heart attack Father Habib Ouechani Obesity Father Habib Ouechani Cancer Mother Jade Ouwatsoni Diabetes Mother Jade Ouwatsoni Hypertension Mother Jade Ouechani Obesity Mother Jade Ouechani Obesity Mother's Brother Yuri Duncan Sleep apnea Mother's Brother Yuri Duncan Relation Name Status Comments Father Leena Ouechani Mother Jade Lockwoodi Mother's Brother Yuri Duncan Social History Tobacco Use Types Packs/Day Years Used Date Smoking Tobacco: Never Smokeless Tobacco: Never Tobacco Cessation:Counseling Given: Not Answered AUDIT-C Answer Date Recorded Frequency of Alcohol Consumption Not on file 05/21/2022 Q2: How many drinks containi ng alcohol do you have on a typical day when you are drinking? Patient does not drink Frequency of Binge Drinking Not on file 01/2022 Personal Safety Answer Date Recorded Have you ever been in or are you currently in a harmful physical or emotional relationship or is someone making you feel afraid or unsafe? 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 CARE Gender Identity Not on file Sexual Orientation Not on file Obstetrics History Last Filed Vital Signs Vital Sign Reading Time Taken Comments Blood Pressure 124/82 01/12/2025 11:53 AM CDT Pulse 62 01/12/2025 11:53 AM CDT Temperature 36.2 C (97.2 F) 10/10/2024 8:40 AM CDT Respiratory Rate 16 01/12/2025 11:32 AM CDT Oxygen Saturation 99% 01/12/2025 11:53 AM CDT Inhaled Oxygen Concentration - - Weight 110.2 kg (243 lb) 10/10/2024 8:40 AM CDT Height 162.6 cm (5' 4) 10/10/2024 8:40 AM CDT Body Mass Index 41.71 10/10/2024 8:40 AM CDT Plan of Treatment Health Maintenance Due Date Last Done Comments Albumin Creatinine Ratio, Urine 1981 Breast Cancer Screening-Mammogram 1981 Cervical Cancer Screening 1981 Depression Screening 1981 Hepatitis C Screening 1981 eGFR 1981 Dilated Eye Exam 1981 Foot Exam 1981 Lipid Panel 1981 Varicella Vaccines (1 of 2 - 13+ 2-dose series) 1994 Regular Well Visit/Exam 18-64 1999 Pneumococcal vaccine <65 (1 of 2 - PCV) 2000 DTaP/Tdap/Td Vaccine (6 - Tdap) 12/15/2005 12/14/2005, 01/19/1996, 12/10/1986, Additional history exists Hemoglobin A1C 09/23/2022 03/25/2022, 11/09/2021 Covid-19 Vaccine (2024-2 6 season) 2025 05/30/2021, 08/19/2020, 07/22/2020 Influenza Vaccine (#1) 2025 , 03/09/2022, 03/20/2021, Additional history exists Hepatitis B Screening Completed 12/18/1996 , 07/17/1996, 01/19/1996 HPV Vaccines Completed 06/08/2007, 10/13, 09/13/2006 Procedures Procedure Name Priority Date/Time Associated Diagnosis Comments FLUORO GUIDED INJECTION SHOULDER RIGHT Schedule Routine, Read Routine (OP Routine) 01/12/2025 11:47 AM CDT Right shoulder pain, unspecified chronicity MRI SHOULDER ARTHROGRAM RIGHT W CONTRAST Schedule Routine, Read Routine (OP Routine) 01/04/2025 12:22 PM CDT Right shoulder pain, unspecified chronicity INJECTION SHOULDER RIGHT ARTHRO ONLY Schedule Routine, Read Routine (OP Routine) 01/04/2025 11:41 AM CDT Right shoulder pain, unspecified chronicity XR SHOULDER RIGHT 2 OR MORE VIEWS Schedule Routine, Read Routine (OP Routine) 12/25/2024 10:21 AM CDT Right shoulder pain, unspecified chronicity XR TRANSFER OF OUTSIDE FILMS Routine 12/25/2024 10:20 AM CDT from Last 3 Months Results * FL Fluoro Guided Injection Shoulder Right (GLENOHUMERAL JOINT) (01/12/2025 11:47 AM CDT) Narrative [facility] - 01/12/2025 11:47 AM CDT The images from this study are not interpreted by Radiology. Please refer to the physician's procedure / OR operative note. us Christopher Chacko MD IMG FLUOROSCOPY P ROCEDURES Final Result [facility] * MRI Shoulder Arthrogram Right W Contrast (01/04/2025 12:22 PM CDT) Anatomical Region Laterality Modality Upper Extremities Right Magnetic Reson ance 01/04/2025 2:34 PM CDT Impressions 01/04/2025 10:49 PM CDT 1. Diffuse nondisplaced right labral tear. 2. Mild right acromioclavicular joint chondrosis with small effusion. Dictated by: Randall Mae MD The radiology attending physician has personally reviewed this study, and had reviewed and/or edited this written report and agrees with it. Electronically signed by: Berenice Wang MD Narrative 01/04/2025 10:49 PM CDT EXAMINATION: 1. MR right shoulder with contrast HISTORY: Right shoulder pain for 2 years after water aerobics FINDINGS: Comparison is made with radiographs dated 01/04/2025. Injection arthrogram was performed prior to the MR, which will be dictated separately. MR examination of the right shoulder was performed with a local coil. Transverse, oblique coronal, and oblique sagittal short TR/TE and fast spin-echo images are obtained. Lastly, the arm was placed in the position of abduction and external rotation and oblique short TR/TE images were obtained. There is a type 2 acromion. The coracoacromial ligament is thin. There is no subacromial spur. There is mild right acromioclavicular joint chondrosis with a small effusion. There is no subacromial subdeltoid bursitis. The rotator cuff muscle bulk is normal. The subscapularis is intact. The supraspinatus and infraspinatus cuff tendons are intact without evidence of tendinopathy or tear. On this arthrographic evaluation, there is a diffuse right nondisplaced labral tear involving the superior, anterior, inferior, and posterior labrum. The bicipital anchor appear intact. The intra-articular biceps tendon is normal. The labrum below the equator is normal. No loose bodies are identified. The bone marrow signal is normal. Procedure Note Yasmin Wang MD - 01/04/2025 EXAMINATION: 1. MR right shoulder with contrast HISTORY: Right shoulder pain for 2 years after water aerobics FINDINGS: Comparison is made with radiographs dated 01/04/2025. Injection arthrogram was performed prior to the MR, which will be dictated separately. MR examination of the right shoulder was performed with a local coil. Transverse, oblique coronal, and oblique sagittal short TR/TE and fast spin-echo images are obtained. Lastly, the arm was placed in the position of abduction and external rotation and oblique short TR/TE images were obtained. There is a type 2 acromion. The coracoacromial ligament is thin. There is no subacromial spur. There is mild right acromioclavicular joint chondrosis with a small effusion. There is no subacromial subdeltoid bursitis. The rotator cuff muscle bulk is normal. The subscapularis is intact. The supraspinatus and infraspinatus cuff tendons are intact without evidence of tendinopathy or tear. On this arthrographic evaluation, there is a diffuse right nondisplaced labral tear involving the superior, anterior, inferior, and posterior labrum. The bicipital anchor appear intact. The intra-articular biceps tendon is normal. The labrum below the equator is normal. No loose bodies are identified. The bone marrow signal is normal. IMPRESSION: 1. Diffuse nondisplaced right labral tear. 2. Mild right acromioclavicular joint chondrosis with small effusion. Dictated by: Randall Mae MD The radiology attending physician has personally reviewed this study, and had reviewed and/or edited this written report and agrees with it. Electronically signed by: Berenice Wang MD Christopher Chacko MD IM MRI PROCEDURE S Final Result * Injection Shoulder Right Arthro Only (01/04/2025 11:41 AM CDT) Anatomical Region Laterality Modality Shoulder Right Computed Radiogr aphy 01/04/2025 11:4 5 AM CDT Impressions 01/04/2025 10:50 PM CDT Right shoulder joint injection under fluoroscopic guidance for MR arthrography. Dictated by: Randall Mae MD The radiology attending physician has personally reviewed this study, and had reviewed and/or edited this written report and agrees with it. Electronically signed by: Berenice Wang MD Narrative 01/04/2025 10:50 PM CDT EXAMINATION: 1. Right shoulder joint injection 2. Fluoroscopic guidance for needle placement HISTORY: Worsening right shoulder pain, pre MR arthrogram TECHNIQUE: The risks, benefits and alternatives were discussed with the patient. Informed consent was obtained. Prior to beginning the procedure, [place] Protocol was performed to confirm the patient's identity and the planned procedure. The fluoroscopy time has been recorded in the electronic medical record. The patient was placed supine on the procedure table. The right shoulder joint was localized with fluoroscopic guidance. The skin was prepped and draped in a standard sterile fashion. Using sterile technique, a 20 mL solution was prepared consisting of 10 mL of a 1:100 dilution of Dotarem gadolinium contrast in sterile saline and 10 mL Conray 60. Local anesthesia was achieved with subcutaneous injection of 1% lidocaine 3 mL. A needle was then introduced into the joint under fluoroscopic guidance. Subsequently, 12 mL of the 1:200 gadolinium contrast was injected with intermittent fluoroscopic visualization. Complication: None Type: None The patient was then transferred to the MR suite for MR arthrogram. Dr. Berenice Wang MD, the attending radiologist, was present from the beginning to the end of the procedure. FINDINGS: Fluoroscopic images confirm intra-articular position of the needle tip with subsequent filling of the joint space. The results of the MR arthrogram are reported separately. Procedure Note Yasmin Wang MD - 01/04/2025 EXAMINATION: 1. Right shoulder joint injection 2. Fluoroscopic guidance for needle placement HISTORY: Worsening right shoulder pain, pre MR arthrogram TECHNIQUE: The risks, benefits and alternatives were discussed with the patient. Informed consent was obtained. Prior to beginning the procedure, [place] Protocol was performed to confirm the patient's identity and the planned procedure. The fluoroscopy time has been recorded in the electronic medical record. The patient was placed supine on the procedure table. The right shoulder joint was localized with fluoroscopic guidance. The skin was prepped and draped in a standard sterile fashion. Using sterile technique, a 20 mL solution was prepared consisting of 10 mL of a 1:100 dilution of Dotarem gadolinium contrast in sterile saline and 10 mL Conray 60. Local anesthesia was achieved with subcutaneous injection of 1% lidocaine 3 mL. A needle was then introduced into the joint under fluoroscopic guidance. Subsequently, 12 mL of the 1:200 gadolinium contrast was injected with intermittent fluoroscopic visualization. Complication: None Type: None The patient was then transferred to the MR suite for MR arthrogram. Dr. Berenice Wang MD, the attending radiologist, was present from the beginning to the end of the procedure. FINDINGS: Fluoroscopic images confirm intra-articular position of the needle tip with subsequent filling of the joint space. The results of the MR arthrogram are reported separately. IMPRESSION: Right shoulder joint injection under fluoroscopic guidance for MR arthrography. Dictated by: Randall Mae MD The radiology attending physician has personally reviewed this study, and had reviewed and/or edited this written report and agrees with it. Electronically signed by: Berenice Wang MD Christopher Chacko MD IMG XR PROCEDURES Final Result * XR Shoulder Right 2+ View (12/25/2024 10:21 AM CDT) Anatomical Region Laterality Modality Upper Extremities, Shoulder Right Comp uted Radiography 12/25/2024 1:05 PM CDT Impressions 12/25/2024 1:09 PM CDT Moderate right acromioclavicular osteoarthritis and mild glenohumeral osteoarthritis with superior rotator cuff calcific tendinosis. Dictated by: Bettye Parker MD The radiology attending physician has personally reviewed this study, and had reviewed and/or edited this written report and agrees with it. Electronically signed by: Sudhakar Childers M.D. Narrative 12/25/2024 1:09 PM CDT EXAMINATION: XR SHOULDER RIGHT 2 OR MORE VIEWS HISTORY: Right shoulder pain FINDINGS: 4 radiographs of the right shoulder are submitted. Comparison is made to an examination dated 03/24/2023. There is no acute fracture or dislocation. There is moderate acromioclavicular osteoarthritis and mild glenohumeral osteoarthritis. There is superior rotator cuff calcific tendinosis. Procedure Note Sudhakar Childers MD - 12/25/2024 EXAMINATION: XR SHOULDER RIGHT 2 OR MORE VIEWS HISTORY: Right shoulder pain FINDINGS: 4 radiographs of the right shoulder are submitted. Comparison is made to an examination dated 03/24/2023. There is no acute fracture or dislocation. There is moderate acromioclavicular osteoarthritis and mild glenohumeral osteoarthritis. There is superior rotator cuff calcific tendinosis. IMPRESSION: Moderate right acromioclavicular osteoarthritis and mild glenohumeral osteoarthritis with superior rotator cuff calcific tendinosis. Dictated by: Bettye Parker MD The radiology attending physician has personally reviewed this study, and had reviewed and/or edited this written report and agrees with it. Electronically signed by: Sudhakar Childers M.D. us Christopher Chacko MD IMG XR PROCEDURES Final Result * XR Outside Reference (12/25/2024 10:20 AM CDT) Impressions [facility] - 12/25/2024 10:20 AM CDT These images are for Reference purposes only and have not been reviewed by [facility] Radiology. There will be no report generated by a [facility] Radiologist. Narrative [facility] - 12/25/2024 10:20 AM CDT EXAMINATION: Images For Reference Purposes Only us Christopher Chacko MD IMG XR PROCEDURES Final Result [facility] from Last 3 Months Insurance [facility] Care Teams Sleep Technician Relationship Specialty Start Date End Date Cristela Lobo NP [facility] [place] [address] PCP - General Nurse Practitioner 12/01/24
--- OUTSIDE RECORDS SUMMARY | 2025-03-07 10:11 | XMS_ITS | Clinical Summary ---
Author Organization [facility] Address [address] [place] [address] Care Team Providers Care Electrical Sign Servicer Name Role Phone Ynes Coronado MD Primary Care Provider Source Comments [facility],non-owned Affiliates and Associated Physician Practices is amultiple site organization consisting of ambulatory clinics and hospital sitesin [place], [place], [place] and [place]. This disclosure is being madepursuant to the Care Everywhere program and may not contain all information available regarding this patient. 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 Gender Identity Not on file Sexual Orientation Not on file Plan of Treatment Health Maintenance Due Date Last Done Comments LIPID TESTING 1981 MAMMOGRAM 1981 HIV SCREENING 1996 HEPATITIS C SCREENING 07/21/1999 DTAP/TDAP/TD VACCINES (1 - Tdap) 2000 HEPATITIS B VACCINE (1 of 3 - 19+ 3-dose series) 2000 HPV VACCINE (1 - 3-dose SCDM series) 2008 DEPRESSION SCREENING 06/14/2024 COVID-19 VACCINE ( - 2023-2 5 season) 2025 INFLUENZA VACCINE (#1) 2025 ZOSTER VACCINE (1 of 2) 2031 HIB VACCINE Aged Out No longer eligi ble based on patient's age to complete this topic MENINGOCOCCAL (Group B) VACC INE SHARED DECISION-MAKING Aged Out No longer eligibl e based on patient's age to complete this topic MENINGOCOCCAL GROUPS A/C/Y/W VACCINE Aged Out No longer eligible b ased on patient's age to complete this topic PNEUMOCOCCAL VACCINE Aged Out No long er eligible based on patient's age to complete this topic Insurance [facility] AETNA Care Teams Electrical Sign Servicer Relationship Specialty Start Date End Date Ynes Coronado MD [address] [place] [address] ROSITA VARGAS [phone] PCP - General 06/26/20
--- OUTSIDE RECORDS SUMMARY | 2025-03-07 10:11 | XMS_ITS | Encounter Summary ---
Author Organization [facility] Address [address] [place] [address] Care Team Providers Care Rag Boiler Name Role Phone Ynes Coronado MD Primary Care Provider Encounter Details Date Type Department Care Team (Late st Contact Info) Description 06/27/[address] 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 Derm[facility] Lab Received: 06/27/2020 11:19 AM Pathologist: Danial Koch MD Specimen: Skin, right neck 1 3:32 PM MACHINE REPAIRMAN DERMATOPATHOLOGY LABORATORY Final Diagnosis Specimen A. SKIN, right neck: EPIDERMOID CYST (L72.0) 3:32 PM MACHINE REPAIRMAN DERMATOPATHOLOGY LABORATORY at 1532 MACHINE REPAIRMAN Clinical History R/O cyst, irritated. 3:32 PM [facility] DERMATOPATHOLOGY LABORATORY Gross Description Specimen A: Received is one formalin filled container labeled with the patient's name and designated right neck. The specimen consists of a 0v4x6mt excision, bisected. Jar 0. 3:32 PM [facility] DERMATOPATHOLOGY LABORATORY Microscopic Description Specimen A. SKIN, right neck: Within the dermis, there is a space lined by epithelium that resembles normal epidermis and the infundibular portion of the hair follicle. 3:32 PM [facility] DERMATOPATHOLOGY LABORATORY Disclaimer An external and internal positive and negative controls are appropriate for the histochemical, immunohistochemical and immunofluorescence stain(s) in this case (if any), except where stated explicitly. The performance characteristics of the stain(s) cited in this report were developed and its performance characteristic determined by the Dermatopathology Laboratory at [facility], directed by Dr. Berenice Koch. These tests need not be, and therefore are not, approved by the [place] Food and Drug Administration. The tests are used for clinical purposes. Billing Codes Specimen Charges Stain Charges 57365 1 3:32 PM MACHINE REPAIRMAN DERMATOPATHOLOGY LABORATORY Embedded Images 3:32 PM [facility] DERMATOPATHOLOGY LABORATORY Pathology/Cytolog y TISSUE SPECIMEN FROM SKIN / Unknown 06/26/2020 06/27/2020 11:19 AM MACHINE REPAIRMAN Result [facility] Donna Flanagan MD LAB - PATHOLOGY/CYTOLOGY OR DERABLES Final Result DERMATOPATHOLOGY LABORATORY [facility] - Department of Dermatology [facility] Medicine [address] [place] [address], [address] [phone] documented in this encounter Visit Diagnoses Not on filedocumented in this encounter Care Teams Rag Boiler Relationship Specialty Start Date End Date Ynes Coronado MD [address] [place] [address] [address] [place] [address] PCP - General 06/26/20 documented as of this encounter
--- OUTSIDE RECORDS SUMMARY | 2025-03-07 10:11 | XMS_ITS | Encounter Summary ---
Author Organization [employer] Address [address] [place] [address] Care Team Providers Care Icebox Worker Name Role Phone Cristela Lobo SHARI Primary Care Provider [phone] Reason for Visit * Reason Onset Date Comments Saddle emboli in a patient w ith BMI >65, recommendations re 11/11/2021 Spoke w/Laine at Dr. Casas' s office Encounter Details Date Type Department Care Team ([facility] Contact Info) Description 11/11/2021 Telephone [facility] Emergency [address] [place] [address] [place] [address] [address] Saddle emboli in a patient with BMI >65, recommendations re (Spoke w/Laine at Dr. Casas's office) Social History Tobacco Use Types Packs/Day Years Used Date Smoking Tobacco: Never Smokeless Tobacco: Never Alcohol Use Standard Drinks/Week Comments Yes 0 (1 standard drink = 0.6 oz pur e alcohol) rare Comments No Sex and Gender Information Value Date Recorded Sex Assigned at Not on file Legal Sex Female 6:04 PM CDT Gender Identity Not on file Sexual Orientation Not on file COVID-19 Exposure Response Date Recorded In the last 10 days, have yo u been in contact with someone who was confirmed or suspected to have Coronavirus/COVID-19? No / Unsure 11/03/2021 8:48 AM CDT documented as of this encounter Plan of Treatment Upcoming Encounters Date Type Department Care Team ([facility] Contact Info) Description 05/01/2025 2:30 PM LINE PALLETIZER Office Visit [facility] Oncology and Hematology [facility] [place] [address] [place] [address] Zoraida Yoder, WANG [address] [place] [address] documented as of this encounter Visit Diagnoses Not on filedocumented in this encounter Additional Health Concerns Assessment Noted Time PHQ-9 Depression Total Score: 4 12/20/19 20 3:00 PM CDT documented as of this encounter Care Teams Icebox Worker Relationship Specialty Start Date End Date Cristela Lobo ANP [address] [phone] PCP - General NURSE PRACTITIONER 03/27/16 05/19/23 documented as of this encounter
== END 2025-03-07 09:30 | disposition home or self-care (01) ==
LOC: ANHBWCIMG 09:29
PROVIDERS: PCP Nurse Practitioner Adult Health; Visit Provider Nurse Practitioner Adult Health
DX: M79.672 Pain in left foot (principal)
CPT/HCPCS: 73630

== ENCOUNTER 2025-05-14 10:57 | Outpatient (CLI) | payer OTHER, SELFPAY ==
--- NOTE | ~2025-05-14 | MM_ITS ---
EXAMINATION: MM screening [facility] BI w aaron HISTORY: Screening TECHNIQUE: Craniocaudal and mediolateral oblique 3-D tomosynthesis images were obtained and synthetic 2-D images were generated. CAD analysis was submitted and interpreted. COMPARISON: Comparison to multiple prior studies sequentially, with oldest reviewed study dated 07/21/2022. BREAST PARENCHYMAL COMPOSITION: Not dense: There are scattered areas of fibroglandular density. FINDINGS: There is no evidence of suspicious mass, calcification, or architectural distortion to suggest malignancy in either breast. There has been no suspicious interval change. IMPRESSION: 1. No mammographic evidence of malignancy. 2. Recommend routine screening mammography in one year. BI-RADS Category 1: Negative Reviewed, dictated and finalized at location I. 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
== END 2025-05-14 10:58 | disposition home or self-care (01) ==
LOC: MICIMG 10:58
PROVIDERS: PCP Nurse Practitioner Adult Health; Visit Provider Nurse Practitioner Obstetrics & Gynecology
DX: Z12.31 Encounter for screening mammogram for malignant neoplasm of breast (principal)
CPT/HCPCS: 77063; 77067